=== PATIENT | male | born 1930 | race Caucasian/White ===

== ENCOUNTER 2018-01-17 15:59 | Emergency (ER) | payer MEDICARE ==
[2018-01-17 16:21] VITALS: BP 135/68
--- NOTE | 2018-01-17 16:39 | UC ---
Hip/Pelvis Pain - HPI Summary HPI Summary: PT SLIPPED AFTER COMING OUT OF THE SHOWER THIS MORNING. LANDED ON RIGHT SIDE AND NOW HAS RIGHT HIP PAIN. DENIES HEAD INJURY. NO LOC. AT BASELINE PT AMBULATES WITH 2 CANES DUE TO CHRONIC LEFT HIP PAIN AND LEFT FOOT DEFORMITY S/P INJURY A YOUNG ADULT. - History Of Current Complaint Chief Complaint: UCLowerExtremity Stated Complaint: FALL - HIP INJURY Time Seen by Provider: 01/17/18 16:21 Hx Obtained From: Patient, Family/Graphic Design Intern - SON AND D-I-L Onset/Duration: Sudden Onset, Lasting Hours, Still Present Timing: Constant Severity Initially: Moderate Severity Currently: Moderate Pain Intensity: 8 Pain Scale Used: 0-10 Numeric Location: Discrete At: - RIGHT HIP Character Of Pain: Sharp Aggravating Factor(s): Movement Alleviating Factor(s): Rest - Allergies/Home Medications Allergies/Adverse Reactions: Allergies Allergy/AdvReac Type Severity Reaction Status Date / Time No Known Allergies Allergy Verified 01/17/18 16:11 Home Medications: Home Medications Acetaminophen [Tylenol Extra Strength] 500 mg PO ONCE 01/17/18 [History Confirmed 01/17/18] PMH/Surg Hx/FS Hx/Imm Hx - Additional Past Medical History Additional PMH: ARTHRITIS Cardiovascular History: Cardiac Disease - AORTIC STENOSIS - Surgical History Surgical History: Yes Surgery Procedure, Year, and Place: tonsils - Family History Known Family History: Negative: Hypertension - Social History Alcohol Use: None Substance Use Type: None Smoking Status (MU): Never Smoked Tobacco Review of Systems Constitutional: Negative Skin: Negative Respiratory: Negative Cardiovascular: Negative Gastrointestinal: Negative All Other Systems Reviewed And Are Negative: Yes Physical Exam Triage Information Reviewed: Yes Appearance: Well-Appearing, No Pain Distress, Well-Nourished Vital Signs: Initial Vital Signs Temp 99.8 F 01/17/18 16:12 Pulse 73 01/17/18 16:12 Resp 20 01/17/18 16:12 BP 135/68 01/17/18 16:12 Pulse Ox 96 01/17/18 16:12 Vital Signs Reviewed: Yes Eyes: Positive: Conjunctiva Clear ENT: Positive: Hearing grossly normal Neck: Positive: Supple Respiratory: Positive: No respiratory distress, No accessory muscle use Cardiovascular: Positive: Pulses Normal Abdomen Description: Positive: Soft Musculoskeletal: Positive: No Edema, ROM Limited @ - RIGHT HIP, Other: - TTP RIGHT HIP POSTERIORLY Neurological: Positive: Alert Psychological: Positive: Normal Response To Family, Age Appropriate Behavior Skin: Negative: rashes, breakdown Diagnostics - Radiology RIGHT HIP XRAY Xray Interpretation: No Acute Changes Radiology Interpretation Completed By: Radiologist Hip Injury Course/Dx - Course Course Of Treatment: RIGHT HIP XRAY UNREMARKABLE TODAY. PER RADIOLOGY REPORT - IF CLINICAL CONCERN IS HIGH MRI OR CT RECOMMENDED. NEITHER OF THESE MODALITIES IS AVAILABLE HERE. PT AND FAMILY DECLINE TRANSFER TO ED. - Differential Dx/Diagnosis Provider Diagnoses: RIGHT HIP CONTUSION Discharge - Sign-Out/Discharge Documenting (check all that apply): Discharge - Discharge Plan Condition: Stable Disposition: HOME Patient Education Materials: Hip Contusion (ED) Referrals: Lexa Rico MD [Medical Doctor] - 2 Days Courtney Santiago MD [Primary Care Provider] - If Needed Additional Instructions: X-ray today unremarkable for fracture or dislocation. Per radiology recommendations - if clinical concern for fracture is high would recommend MRI or CT scan. Neither of these are available here today. You have declined transfer to the ED for further evaluation which at this point. Call your PCP or orthopedist on Friday morning for follow-up evaluation. Go to the ED without fail if you develop worsening pain, swelling and shortness of breath or any other concerning symptoms. Also if your urine turns brown or red. Okay to use your meloxicam twice daily as prescribed for discomfort. Tylenol for breakthrough. Physical therapy referral given today. BE SURE TO GO THROUGH SLOW RANGE OF MOTION AND STRETCHING EXERCISES DAILY YOU ARE ABLE TO PREVENT STIFFENING UP AND MAKING THE DISCOMFORT WORSE. YOU HAVE DECLINED TRANSFER TO THE ED TODAY WITH THE UNDERSTANDING THAT YOUR CONDITION MAY WORSEN LEADING TO POOR OUTCOME, /DISABILITY. - Billing Disposition and Condition Condition: STABLE Disposition: HOME
--- NOTE | 2018-01-17 16:58 | RAD ---
HISTORY: Fall, right hip pain COMPARISONS: None VIEWS: 4, Frontal view of the pelvis with frontal and frog-leg views of the right hip FINDINGS: BONE DENSITY: There is diffuse osteopenia. BONES: There is no displaced fracture. 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 ALIGNMENT: There is no dislocation. SOFT TISSUES: Unremarkable. OTHER FINDINGS: Degenerative changes are noted of the lower lumbar spine. IMPRESSION: NO RADIOGRAPHIC EVIDENCE FOR HIP FRACTURE. X-RAYS MAY BE NEGATIVE WITH NONDISPLACED HIP FRACTURE, IF THERE IS PERSISTENT CLINICAL CONCERN, RECOMMEND CONSIDERATION OF MRI. IN THE SETTING OF CONTRAINDICATION TO MRI OR LIMITATION IN EMERGENT ACCESS TO MRI, CT WOULD BE SUGGESTED.
== END 2018-01-17 18:30 | disposition home or self-care (01) ==
LOC: UCEAST 15:59
DX: S70.01XA Contusion of right hip, initial encounter (principal); W18.2XXA Fall in (into) shower or empty bathtub, initial encounter; Y93.E1 Activity, personal bathing and showering; Y92.9 Unspecified place or not applicable
CPT/HCPCS: 99211; G0463

== ENCOUNTER 2018-05-16 19:15 | Emergency (ER) | payer MEDICARE, BC ==
--- NOTE | 2018-05-16 21:15 | UC ---
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 Onset/Duration: Sudden Onset, Lasting Hours Onset Of Pain: Immediate Pain Intensity: 5 Pain Scale Used: 0-10 Numeric Mechanism Of Injury: Blunt Trauma, Fall From A Standing Position Aggravating Factor(s): Deep Breaths Alleviating Factor(s): Nothing - Allergies/Home Medications Allergies/Adverse Reactions: Allergies Allergy/AdvReac Type Severity Reaction Status Date / Time No Known Allergies Allergy Verified 05/16/18 19:48 Home Medications: Home Medications Meloxicam 7.5 mg PO BID PRN 05/16/18 [History Confirmed 05/16/18] PMH/Surg Hx/FS Hx/Imm Hx Previously Healthy: No - Surgical History Surgical History: Yes Surgery Procedure, Year, and Place: tonsils - Family History Known Family History: Negative: Hypertension - Social History Occupation: Retired Lives: Alone Alcohol Use: None Substance Use Type: None Smoking Status (MU): Never Smoked Tobacco Review of Systems Constitutional: Negative Skin: Negative Eyes: Negative ENT: Negative Respiratory: Negative Cardiovascular: Negative Gastrointestinal: Negative Genitourinary: Negative Motor: Negative Neurovascular: Negative Musculoskeletal: Arthralgia - right posterior rib pain Neurological: Negative Psychological: Negative Is Patient Immunocompromised?: No All Other Systems Reviewed And Are Negative: Yes Physical Exam Triage Information Reviewed: Yes Appearance: Well-Appearing, No Pain Distress, Well-Nourished Vital Signs: Initial Vital Signs Temp 100.4 F 05/16/18 19:38 Pulse 101 05/16/18 19:38 Resp 18 05/16/18 19:38 BP 115/71 05/16/18 19:38 Pulse Ox 97 05/16/18 19:38 Vital Signs Reviewed: Yes Eye Exam: Normal Eyes: Positive: Conjunctiva Clear ENT Exam: Normal ENT: Positive: Normal ENT inspection, Hearing grossly normal, Pharynx normal, Uvula midline. Negative: Nasal congestion, Trismus, Muffled voice, Hoarse voice , Dental tenderness, Sinus tenderness Dental Exam: Normal Neck exam: Normal Neck: Positive: Supple, Nontender, No Lymphadenopathy Respiratory Exam: Normal Respiratory: Positive: Chest non-tender, Lungs clear, Normal breath sounds, No respiratory distress, No accessory muscle use Cardiovascular Exam: Normal Cardiovascular: Positive: RRR, No Murmur, Pulses Normal, Brisk Capillary Refill Abdominal Exam: Normal Abdomen Description: Positive: Nontender, No Organomegaly, Soft. Negative: CVA Tenderness (R), CVA Tenderness (L) Bowel Sounds: Positive: Present Musculoskeletal Exam: Normal Musculoskeletal: Positive: Strength Intact, ROM Intact, No Edema Neurological Exam: Normal Neurological: Positive: Alert, Muscle Tone Normal Psychological Exam: Normal Skin Exam: Other Skin: Positive: Other - 2.5 cm skin discoloration with irregular boarders and color variation posterior left calf Diagnostics - Radiology No standard instances Radiology Interpretation Completed By: ED Physician - no obvious displaced rib fx Minor Trauma Course/Dx - Course Course Of Treatment: pain control, incentive spirometer, splinter, heat/cold for pain mamagement - Differential Dx/Diagnosis Provider Diagnoses: right posterior rib injury, atypical mole back of left leg Discharge - Sign-Out/Discharge Documenting (check all that apply): Patient Departure - Discharge Plan Condition: Stable Disposition: HOME Patient Education Materials: Acetaminophen (By mouth), How to Use an Incentive Spirometer (ED), Rib Fracture (ED), Atypical Mole (ED) Referrals: Zia Castro MD [Medical Doctor] - (call office Friday for an appointment--) Courtney Santiago MD [Primary Care Provider] - 3 Days - Billing Disposition and Condition Condition: STABLE Disposition: Home
[2018-05-16 21:34] VITALS: BP 117/58
[2018-05-16] MEDS ORDERED: Acetaminophen TAB* 325 MG PO ONE (21:41)
--- NOTE | 2018-05-17 11:21 | RAD ---
Indication: RIGHT rib pain post fall. Comparison: December 02, 2015 Technique: Dual energy PA chest and 4 view RIGHT unilateral rib series. Report: Nondisplaced fracture at the RIGHT sixth rib laterally corresponding with the skin marker indicating the site of clinical concern. Overlying soft tissue swelling. Small RIGHT pleural effusion and basilar atelectasis. Negative for pneumothorax. Clear LEFT lung and pleural space. Negative for cardiomegaly. Unremarkable central pulmonary vasculature. Moderately tortuous descending thoracic aorta. IMPRESSION: #. Nondisplaced RIGHT sixth rib fracture laterally with overlying soft tissue swelling. #. Small dependent RIGHT pleural effusion and proportional atelectasis. #. Negative for pneumothorax. R2
== END 2018-05-16 21:58 | disposition home or self-care (01) ==
LOC: UCEAST 19:15
DX: S29.9XXA Unspecified injury of thorax, initial encounter (principal); S22.31XA Fracture of one rib, right side, initial encounter for closed fracture; W18.30XA Fall on same level, unspecified, initial encounter; Y93.9 Activity, unspecified; Y92.9 Unspecified place or not applicable; D36.7 Benign neoplasm of other specified sites; J90 Pleural effusion, not elsewhere classified
CPT/HCPCS: 81003; 99212; A9270-GY; G0463

== ENCOUNTER 2018-12-02 17:55 | Inpatient (IN) | payer MEDICARE, BC ==
--- NOTE | 2018-12-02 18:18 | ED ---
Back Pain - HPI Summary HPI Summary: 88 yo male presents to [facility] ED via ambulance. He is a resident at [facility] and lives independently. He is accompanied today by his son and daughter in law. Pt tells me that he was lying on the couch earlier this evening, when he accidentally rolled off onto the carpeted floor. He is unsure if he hit his head , but does not believe he experienced LOC. He was unable to get to his feet and thus remained on the floor calling for help for 2-3 hours - per pt. Eventually staff at [facility] found pt and an ambulance was called. Currently he endorses pain in his b/l hips and mid back. He is unable to ambulate. Prior to today's injury he was ambulating with the assistance of two canes. The pain in his hips radiates down both of his legs. He denies numbness, tingling, saddle anesthesia , or loss of bowel/bladder control. PMHx of aortic stenosis - currently not being treated. He also had a left ankle fracture in high school that healed improperly and left him with a deformity. - History of Current Complaint Chief Complaint: EDBackInjuryPain Stated Complaint: FALL Time Seen by Provider: 12/02/18 18:18 Hx Obtained From: Patient, Family/Distribution Transformer Assembler Onset/Duration: Sudden Onset Timing: Constant Severity Initially: Moderate Severity Currently: Moderate Pain Intensity: 8 Pain Scale Used: 0-10 Numeric - Allergies/Home Medications Allergies/Adverse Reactions: Allergies Allergy/AdvReac Type Severity Reaction Status Date / Time No Known Allergies Allergy Verified 12/02/18 18:04 Home Medications: Home Medications Latanoprost 0.005% Eye Drop 1 drop BOTH EYES BEDTIME 12/02/18 [History Confirmed 12/02/18] Timoptic 0.5% Opth* 1 drop BOTH EYES BID 12/02/18 [History Confirmed 12/02/18] PMH/Surg Hx/FS Hx/Imm Hx Endocrine/Hematology History: Denies: Hx Anticoagulant Therapy, Hx Diabetes Cardiovascular History: Denies: Hx Atrial Fibrillation, Hx Myocardial Infarction, Hx Pacemaker/ICD Respiratory History: Denies: Hx Asthma, Hx Chronic Obstructive Pulmonary Disease (COPD) History: Denies: Hx Chronic Renal Failure Neurological History: Denies: Hx CVA, Hx Seizures, Hx Spinal Cord Injury - Surgical History Surgery Procedure, Year, and Place: tonsils Hx Anesthesia Reactions: No Infectious Disease History: No Infectious Disease History: Denies: Traveled Outside the [place] in Last 30 Days - Family History Known Family History: Negative: Hypertension - Social History Occupation: Retired Lives: Assisted Living Alcohol Use: None Substance Use Type: Reports: None Smoking Status (MU): Never Smoked Tobacco Review of Systems Constitutional: Negative Eyes: Negative ENT: Negative Cardiovascular: Negative Respiratory: Negative Gastrointestinal: Negative Genitourinary: Negative Positive: Other - Mid back pain. B/L hip pain Skin: Negative Neurological: Negative Psychological: Normal All Other Systems Reviewed And Are Negative: Yes Physical Exam - Summary Physical Exam Summary: GENERAL: NAD. Lying comfortably on stretcher. SKIN: No rashes, sores, ulcers, masses, lesions. HEENT: Head: AT/NC. No raccoon eyes or battles sign. NECK: Supple. Nontender. FROM CHEST: Rales on RLL. No accessory muscle use. Breathing comfortably and in no distress. CV: RRR. Pulses intact. Brisk cap refill. ABDOMEN: Soft. NTTP. No distention or guarding. No CVA tenderness. Bowel sounds present MSK: Decreased strength on left LE - son says this is baseline due to ankle deformity. Left ankle with external rotation deformity. B/L UEs FROM with symmetric strength. B/L Hips with TTP without specific point tenderness. Vertebral tenderness ~T10-T12. NEURO: A&Ox3. 3 word recall, remote, recent memory, ability to follow 2-step directions, and attention intact. CN: II: Peripheral de la rosa intact. Vision normal. III, IV, : EOMI. No nystagmus. PERRLA. V: Sensations intact and symmetric. Opens mouth and clenches teeth. VII: No facial asymmetry. Forehead wrinkles. Grins, shuts eyes, frowns, puffs cheeks. VIII: Hearing intact to finger rub. IX, X: Swallows and coughs. Uvula midline. XI: Shrugs shoulders. Turns head against resistance. XII: No tongue deviation [id number] are intact. Normal speech. No facial drooping. PSYCH: Age appropriate behavior. GCS 15 Triage Information Reviewed: Yes Vital Signs On Initial Exam: Initial Vitals Temp Pulse Resp BP Pulse Ox 98.3 F 69 18 138/93 95 12/02/18 18:02 12/02/18 18:02 12/02/18 18:02 12/02/18 18:02 12/02/18 18:02 Vital Signs Reviewed: Yes Diagnostics - Vital Signs Vital Signs Temp Pulse Resp BP Pulse Ox 12/02/18 18:02 98.3 F 69 18 138/93 95 - Laboratory Lab Results: Laboratory Tests 12/02/18 12/02/18 12/02/18 20:55 20:55 20:55 WBC 7.6 RBC 3.88 L Hgb 12.7 L Hct 38 L MCV 98 H MCH 33 H MCHC 33 RDW 13 Plt Count 121 L MPV 7.4 Neut % (Auto) 85.5 Lymph % (Auto) 6.8 [place] % (Auto) 7.1 Eos % (Auto) 0.3 Baso % (Auto) 0.3 Absolute Neuts (auto) 6.5 Absolute Lymphs (auto) 0.5 L Absolute Monos (auto) 0.5 Absolute Eos (auto) 0 Absolute Basos (auto) 0 Absolute Nucleated RBC 0 Nucleated RBC % 0 Sodium Potassium Chloride Carbon Dioxide Anion Gap BUN Creatinine Est GFR ( Amer) Est GFR (Non-Af Amer) BUN/Creatinine Ratio Glucose Lactic Acid 2.0 Calcium Total Bilirubin AST ALT Alkaline Phosphatase Total Protein Albumin Globulin Albumin/Globulin Ratio Urine Color Yellow Urine Appearance Cloudy Urine pH 5.0 Ur Specific [place] 1.025 Urine Protein Negative Urine Ketones Negative Urine Blood Negative Urine Nitrate Negative Urine Bilirubin Negative Urine Urobilinogen Negative Ur Leukocyte Esterase Negative Urine Glucose Negative 12/02/18 20:55 WBC RBC Hgb Hct MCV MCH MCHC RDW Plt Count MPV Neut % (Auto) Lymph % (Auto) [place] % (Auto) Eos % (Auto) Baso % (Auto) Absolute Neuts (auto) Absolute Lymphs (auto) Absolute Monos (auto) Absolute Eos (auto) Absolute Basos (auto) Absolute Nucleated RBC Nucleated RBC % Sodium 139 Potassium 3.8 Chloride 105 Carbon Dioxide 31 Anion Gap 3 BUN 19 Creatinine 0.64 L Est GFR ( Amer) 143.5 Est GFR (Non-Af Amer) 118.6 BUN/Creatinine Ratio 29.7 H Glucose 170 H Lactic Acid Calcium 8.6 Total Bilirubin 0.70 AST 30 ALT 17 Alkaline Phosphatase 47 Total Protein 6.1 L Albumin 3.6 Globulin 2.5 Albumin/Globulin Ratio 1.4 Urine Color Urine Appearance Urine pH Ur Specific [place] Urine Protein Urine Ketones Urine Blood Urine Nitrate Urine Bilirubin Urine Urobilinogen Ur Leukocyte Esterase Urine Glucose Result Diagrams: 12/02/18 20:55 12/02/18 20:55 Lab Statement: Any lab studies that have been ordered have been reviewed, and results considered in the medical decision making process. Re-Evaluation - Re-Evaluation First Eval Re-Evaluation Time: 20:36 Change: Unchanged Comment: Reviewed results of CT brain, t spine, and pelvis with pt and family. Questions answered. Lying comfortably in stretcher. Back Pain Course/Dx - Course Course Of Treatment: CT brain: IMPRESSION: No acute intracranial pathology. CT c spine: IMPRESSION: 1. No acute cervical spine fracture. 2. Partially visualized right pleural effusion. CT pelvis: FINDINGS: Stomach and bowel: Diverticulosis of the distal colon. Vasculature: Heavy atherosclerotic calcifications of the aorta and major. branches. Ectasia of the infrarenal abdominal aorta just above the bifurcation,. measuring up to 2.8 cm in maximal AP diameter. Bones/joints: Generalized osteopenia. No acute fracture identified. Soft tissues: Unremarkable. IMPRESSION: 1. No acute fracture or dislocation. 2. Other chronic findings, as above. CT t spine: FINDINGS: Vertebrae: Severe age-indeterminate compression deformity of the anterior. aspect of the T12 vertebral body with retropulsion causing approximately 20%. osseous canal narrowing. Remaining thoracic vertebral body heights are intact. Multilevel facet arthropathy. Spinous processes are intact. Discs/Spinal canal/ Neural foramina: Multilevel degenerative changes with. intervertebral disc height loss and osteophyte formation. No significant canal. narrowing. Soft tissues: Unremarkable. Pleural space: Partially visualized moderate right pleural effusion. Kidneys and ureters: Nonobstructive calyceal calculi in the left kidney. IMPRESSION: 1. Severe age-indeterminate compression deformity of the anterior aspect of the. T12 vertebral body with retropulsion causing approximately 20% osseous canal. narrowing. This can be better assessed with MRI thoracic spine. 2. Partially visualized moderate right pleural effusion. 3. Other chronic findings, as above. EKG: NSR without ST changes as read by Dr. Gates. XR: Lumbar spine : No acute process on wet read. Pt is unable to ambulate due to pain and instability. Family tells me that he was previously ambulatory with the use of two canes. Spoke with Dr. Burns as above. Unable to obtain MRI at this time as the machine is apparently not working, but I am told it will be available within the next few hours. Given pt's T12 fracture and inability to care for himself - I discussed hospital admission with pt and his family. They were agreeable to this. [address] Harvey who accepts pt for admission. - Diagnoses Provider Diagnoses: T12 compression fracture, Unable to ambulate, Pleural effusion, right, Fall - Provider Notifications Discussed Care Of Patient With: Enrique Burns Time Discussed With Above Provider: 20:30 Instructed by Provider To: Other - Discussed case and CT results with Dr. Burns. He recommends spine precautions, CT c spine, XR of lumbar spine, and MRI of t spine to further evaluate. If admitted he will see pt in the morning. Discharge - Sign-Out/Discharge Documenting (check all that apply): Patient Departure Patient Received Moderate/Deep Sedation with Procedure: No - Discharge Plan Condition: Stable Disposition: ADMITTED TO [facility] - Billing Disposition and Condition Condition: STABLE Disposition: Admitted to [facility]
--- OUTSIDE RECORDS SUMMARY | 2018-12-02 18:30 | XMS REPORT | Continuity of Care Document ---
:1930 External Reference #:[id number] Author Name Srinivasan Posadas, OD Address [address] [place] [address] Care Team Providers Name Role Phone Courtney Santiago MD Care Team Information Framing Machine Tender Unavailable Courtney Santiago MD Primary Care Physician Unavailable Payers Type Date Identification Numbers Payment Provider Subscriber Policy Number: [id number] Medicare [place] Pieter Gordon JR PayID: [id number] [address] [place] [address] Policy Number: [id number] [place] [employer] Pieetr Gordon JR PayID: [id number] [address] [place] [address] Advance Directives Description No Information Available Problems Description No Information Family History Date Family Member(s) Problem(s) Comments Father Cognative Decline after pace maker Father due to Unknown Causes () Mother due to Natural Causes () Social History Type Date Description Comments Sex Unknown ETOH Use Never used alcohol Tobacco Use Start: Unknown Patient has never smoked Smoking Status Reviewed: 11/10/18 Patient has never smoked Allergies, Adverse Reactions, Alerts Description No Known Drug Allergies Medications Medication Date Status Form Strength Qnty SIG Indications Ordering Provider Timolol 10/05/ Active GFS 0.5% 15ml one drop Srinivasan Gee 2018 every day Cuauhtemoc, OD Ophthalmic both eyes, Gel Forming take 15 minutes after latanoprost Latanoprost 09/14/ Active Solution 0.005% 22.5ml 1 drops both H40.1413 Peter 2018 eyes every Bradley, night M.D. No Active 09/14/ Hx Unknown Medications 2017 - 2017 Immunizations Description No Information Available Vital Signs Date Vital Result Comment 11/10/2018 2:38pm Intraocular Pressure Right Eye 16 mmHg Intraocular Pressure Left Eye 16 mmHg 10/05/2018 3:14pm Intraocular Pressure Right Eye 20 mmHg Intraocular Pressure Left Eye 19 mmHg 09/14/2018 1:33pm Intraocular Pressure Right Eye 30 mmHg Intraocular Pressure Left Eye 30 mmHg Cornea Thickness Left Eye 560 m Cornea Thickness Right Eye 521 m Pachymetry adjusted IOP Right Eye -1 Pachymetry adjusted IOP Left Eye +1 Results Description No Information Available Procedures Date Code Description Status 10/05/2018 81334 Eye Exam Est Intermediate Completed 09/14/2018 50334 Fundus Photography W/Interpretation & Report Completed 09/14/2018 96206 Ophthalmoscopy Initial Completed 09/14/2018 38083 Gonioscopy Completed 09/14/2018 38365 Eye Exam New Comprehensive Completed 09/14/2018 67480 Corneal Pachymetry, Unilateral/Bilateral Completed Encounters Description No Information Available Plan of Treatment 11/10/2018 - Srinivasan Posadas, [id number] Primary open-angle glaucoma, left eye, severe [id number] Capsular glaucoma with pseudoexfoliation of lens, right eye ,H25.13 Age-related nuclear cataract, bilateralFollow up:A-scans OU with dr bradley 3 mos IOP
[2018-12-02] MEDS ORDERED: Acetaminophen TAB* 325 MG PO ONE (20:47)
[2018-12-02 21:13] LABS: ABS Basophils 0 10^3/ul (0-0.2); ABS Eosinophils 0 10^3/ul (0-0.6); ABS Lymphocytes 0.5 10^3/ul (1.0-4.8); ABS Monocytes 0.5 10^3/ul (0-0.8); ABS Neutrophils 6.5 10^3/ul (1.5-7.7); ABS Nucleated RBC 0 10^3/ul; Eosinophil % 0.3 %; Hematocrit 38 % (42-52); Hemoglobin 12.7 g/dl (14.0-18.0); Lymphocyte % 6.8 %; Mean Corpuscular HGB Conc 33 g/dl (31-36); Mean Corpuscular Hemoglobin 33 pg (27-31); Mean Corpuscular Volume 98 fL (80-94); Mean Platelet Volume 7.4 fL (7.4-10.4); Nucleated Red Blood Cells % 0; Platelet Count 121 10^3/ul (150-450); Red Blood Count 3.88 10^6/ul (4.00-5.40); Red Cell Distribution Width 13 % (10.5-15); White Blood Count 7.6 10^3/ul (3.5-10.8)
[2018-12-02 21:16] LABS: Urine Appearance Cloudy; Urine Bilirubin Negative (Negative); Urine Blood Negative (Negative); Urine Color Yellow; Urine Glucose Negative (Negative); Urine Ketones Negative (Negative); Urine Nitrite Negative (Negative); Urine Protein Negative (Negative); Urine Specific Gravity 1.025 (1.010-1.030); Urine Urobilinogen Negative (Negative)
[2018-12-02 21:31] LABS: Albumin 3.6 g/dL (3.2-5.2); Albumin/Globulin Ratio 1.4 (1-3); BUN/Creatinine Ratio 29.7 (8-20); Calcium 8.6 mg/dL (8.6-10.3); EGFR African American 143.5 (>60); EGFR Non-African American 118.6 (>60); Globulin 2.5 g/dL (2-4); Potassium 3.8 mmol/L (3.5-5.0); Total Bilirubin 0.7 mg/dL (0.2-1.0); Total Protein 6.1 g/dL (6.4-8.9)
[2018-12-02] MEDS ORDERED: Acetaminophen TAB* 325 MG PO PRN (22:32)
[2018-12-02] MEDS ORDERED: Ondansetron INJ* 2 MG/ML VIAL IV PRN (22:33)
--- NOTE | 2018-12-03 01:04 | HP ---
CC: Dr. Courtney Santiago; Dr. Burns HISTORY AND PHYSICAL: DATE OF ADMISSION: 12/02/18 PRIMARY CARE PROVIDER: Dr. Courtney Santiago. CHIEF COMPLAINT: Status post fall and hip pain. HISTORY OF PRESENT ILLNESS: This is an 88-year-old male with past medical history of aortic stenosis, glaucoma, who at 3 o'clock this afternoon, sustained a fall. He states that he was sitting in a chair when he all of a sudden just slipped out of the chair. The fall was not associated with any head trauma, no loss of consciousness. There was no chest pain, no shortness of breath, no lightheadedness. However, since the fall, he has been having bilateral hip pain as well as lower back pain. There is no associated numbness or weakness of the lower extremities, there is no rectal or urinary incontinence. In the emergency room, the patient had workup done, which showed compression fracture of the T12. Subsequently, the neurosurgeon, Dr. Burns was contacted. He recommended admission to the hospital with ordering of an MRI. Subsequently, the hospitalist service was called. PAST MEDICAL HISTORY: 1. Glaucoma. 2. Aortic stenosis. PAST SURGICAL HISTORY: Knee arthroscopy. MEDICATIONS: Include: 1. Timoptic 0.5% ophthalmic solution 1 drop both eyes twice daily. 2. Latanoprost eye drop, 1 drop both eyes at bedtime. ALLERGIES: No known drug allergies. FAMILY HISTORY: Father had dementia as well as pacemaker placement. SOCIAL HISTORY: He lives at [facility], with no smoking, no alcohol use. The patient a is do not resuscitate. Healthcare proxy is Qasim, son, phone number [phone], additional phone number [phone]. REVIEW OF SYSTEMS: He does not have any fevers, no chills, no sore throat, no chest pain, no shortness of breath, no palpitations, no nausea, no vomiting, no abdominal pain. He is having back pain as well as hip pain. No knee pain. No urinary or rectal incontinence. No nausea, no vomiting, no diarrhea. No headaches, no weakness, no numbness. PHYSICAL EXAMINATION BP: 11/5/53, HR: 69, RR: 16, O2: 97% Room Air. GENERAL: Elderly male, lying in an ER stretcher, in no acute distress. HEENT: Pupils are equal, round, reactive to light. Atraumatic, normocephalic. There is no oropharyngeal erythema. LUNGS: There is no tachypnea, no use of accessory muscles. Lungs are clear to auscultation bilaterally with no wheezing, rales, or rhonchi. HEART: There is no chest wall tenderness, regular rate and rhythm, 3/6 systolic murmur best heard at the right upper sternal border. ABDOMEN: Bowel sounds are normoactive in all 4 quadrants. Abdomen is soft, nontender, nondistended. BACK: There is bilateral hip tenderness as well as lower back tenderness. EXTREMITIES: There is dorsalis pedis, is 2+ bilaterally. He is able to wiggle toes bilaterally. Sensation to the feet as well as legs is intact. NEUROLOGICAL: Alert and oriented x2, person and place. There are no focal neurological deficits. DIAGNOSTIC STUDIES/LAB DATA: Hemoglobin of 12.7, hematocrit of 38, WBC of 7.6 , platelets of 121. Sodium 139, potassium 3.8, chloride 105, bicarb 31, BUN 19 , creatinine was 0.64, glucose of 170. Brain CT did not show any acute pathology. Pelvic CT showed no acute fracture or dislocation, chronic findings were shown. Thoracic CT shows T12 vertebral body, age-indeterminate compression deformity at the anterior aspect causing 20% canal narrowing. Partially visualized moderate right pleural effusion. IMPRESSION AND PLAN: 1. This is a T12 compression fracture: At this point, the patient does not have any neurological deficits. MRI has been ordered, neurological consultation with Dr. Burns has been requested. Pain control 2. Aortic stenosis. At this point, he does not have any acute symptomatic aortic stenosis. Ccontinue to monitor. 3. Pleural effusion; however, it is not causing him any shortness of breath, does not require oxygen. 4. Glaucoma: Continue home medications. 5. DVT prophylaxis: Due to the acute fracture, I will place him on sequential compression device. [id number]/[facility] #: [id number] COURTNEY
[2018-12-03] MEDS: oxyCODONE/Acetamin 5/325 MG* TAB PO PRN ×2 (02:18→09:04)
[2018-12-03] MEDS: Timolol 0.5% OPTH.SOL* BTL BOTH EYES SCH ×2 (09:05→21:45)
--- NOTE | 2018-12-03 16:35 | PN ---
Subjective Date of Service: 12/03/18 Interval History: Resting in bed on assessment. Family at bedside. Reports pain is controlled if he does not move. Family reports patient gets sleeping with percocet. Denies numbness/tingling, weakness, urinary symptoms, chest pain/pressure, nausea, vomiting. Objective Active Medications: Acetaminophen (Tylenol Tab*) 650 mg PO Q6H [facility] Latanoprost (Xalatan 0.005%*) 1 drop BOTH EYES BEDTIME [facility] Ondansetron HCl (Zofran Inj*) 4 mg IV Q6H PRN PRN Reason: NAUSEA Oxycodone/Acetaminophen (Percocet 5/325 Tab*) 1 tab PO Q6H PRN PRN Reason: PAIN - MODERATE TO SEVERE Last Admin: 12/03/18 09:04 Dose: 1 tab Timolol Maleate (Timoptic 0.5% Opth*) 1 drop BOTH EYES BID YURIDIA Last Admin: 12/03/18 09:05 Dose: 1 drop Vital Signs - 8 hr 12/03/18 12/03/18 12/03/18 09:04 10:54 14:00 Temperature 98 F Pulse Rate 66 Respiratory 16 18 17 Rate Blood Pressure 118/48 (mmHg) O2 Sat by Pulse 97 Oximetry Oxygen Devices in Use Now: None Appearance: Comfortable, NAD Eyes: No Scleral Icterus Ears/Nose/Mouth/Throat: Clear Oropharnyx, Mucous Membranes Moist Neck: NL Appearance and Movements; NL JVP Respiratory: Symmetrical Chest Expansion and Respiratory Effort, Clear to Auscultation Cardiovascular: RRR, - - Systolic murmur noted. Abdominal: NL Sounds; No Tenderness; No Distention Lymphatic: No Cervical Adenopathy Extremities: No Edema Skin: No Rash or Ulcers Neurological: Alert and Oriented x 3, NL Sensation, NL Muscle Strength and Tone Nutrition: Taking PO's Result Diagrams: 12/02/18 20:55 12/02/18 20:55 Additional Lab and Data: Laboratory Results - last 24 hr 12/02/18 12/02/18 12/02/18 20:55 20:55 20:55 WBC 7.6 RBC 3.88 L Hgb 12.7 L Hct 38 L MCV 98 H MCH 33 H MCHC 33 RDW 13 Plt Count 121 L MPV 7.4 Neut % (Auto) 85.5 Lymph % (Auto) 6.8 [place] % (Auto) 7.1 Eos % (Auto) 0.3 Baso % (Auto) 0.3 Absolute Neuts (auto) 6.5 Absolute Lymphs (auto) 0.5 L Absolute Monos (auto) 0.5 Absolute Eos (auto) 0 Absolute Basos (auto) 0 Absolute Nucleated RBC 0 Nucleated RBC % 0 Sodium Potassium Chloride Carbon Dioxide Anion Gap BUN Creatinine Est GFR ( Amer) Est GFR (Non-Af Amer) BUN/Creatinine Ratio Glucose Lactic Acid 2.0 Calcium Total Bilirubin AST ALT Alkaline Phosphatase Total Protein Albumin Globulin Albumin/Globulin Ratio Urine Color Yellow Urine Appearance Cloudy Urine pH 5.0 Ur Specific [place] 1.025 Urine Protein Negative Urine Ketones Negative Urine Blood Negative Urine Nitrate Negative Urine Bilirubin Negative Urine Urobilinogen Negative Ur Leukocyte Esterase Negative Urine Glucose Negative 12/02/18 20:55 WBC RBC Hgb Hct MCV MCH MCHC RDW Plt Count MPV Neut % (Auto) Lymph % (Auto) [place] % (Auto) Eos % (Auto) Baso % (Auto) Absolute Neuts (auto) Absolute Lymphs (auto) Absolute Monos (auto) Absolute Eos (auto) Absolute Basos (auto) Absolute Nucleated RBC Nucleated RBC % Sodium 139 Potassium 3.8 Chloride 105 Carbon Dioxide 31 Anion Gap 3 BUN 19 Creatinine 0.64 L Est GFR ( Amer) 143.5 Est GFR (Non-Af Amer) 118.6 BUN/Creatinine Ratio 29.7 H Glucose 170 H Lactic Acid Calcium 8.6 Total Bilirubin 0.70 AST 30 ALT 17 Alkaline Phosphatase 47 Total Protein 6.1 L Albumin 3.6 Globulin 2.5 Albumin/Globulin Ratio 1.4 Urine Color Urine Appearance Urine pH Ur Specific [place] Urine Protein Urine Ketones Urine Blood Urine Nitrate Urine Bilirubin Urine Urobilinogen Ur Leukocyte Esterase Urine Glucose Assess/Plan/Problems-Billing Assessment: 88 yr old male with pmh of aortic stenosis and glaucomo who sustained injury after mechanical fall at home. - Patient Problems (1) Compression fx, thoracic spine Comment: - 75% compression of T12 with no bone marrow edema consistent with old fx - Neurosurg consulting. (2) Compression fx, lumbar spine Comment: - Lumbar Xray revealed severe compression fracture of L1 vetebral body and moderate compression fx of L4 (3) Aortic stenosis Comment: - Echo ordered. - Systolic murmur noted (4) Pain Comment: - Patient taking one percocet for pain PRN - Family has noted drowsiness with percocet - Tylenol changed from PRN to scheduled to avoid peaks of pain and therefore may need less percocet. (5) DVT prophylaxis Comment: - Heparin Subq Status and Disposition: Inpatient until medically stable. Subacute rehab at discharge? Attending: Aaron Quigley
[2018-12-03] MEDS: Acetaminophen TAB* 325 MG PO SCH ×2 (17:45→21:58)
--- NOTE | 2018-12-03 18:48 | CONSULT ---
Palliative / Hospice Consult Ordering Provider: Aaron Santiago-PCP - Subjective Code Status: DNR Advance Directives Location: In Chart MOLST Part A Completed: Yes - completed with son MOLST Part E Completed:: Yes - completed with son - History or Present Illness History or Present Illness: 88 yo male resident of [facility] living with moderate dementia who slid off his couch and hurt his back. He has aortic stenosis not sure of severity last ECHO was done at [place] in 08/12. At that time they didn't want to proceed with valve replacement because they were afraid of worsening his dementia and didn't want to fix heart so he could have prolonged due to dementia. His other medical problems include glaucoma and osteopenia. He has an old compression fx and new R pleural effusion. He is a retired computer systems software engineer, one son Qasim who is his HCP. Non smoker, no etoh and no drug use. He has had 2 ER evaluations 05/16/18 rib injury & 01/17/[address] brain neg, CT pelvis osteopenia, ectasia of abd aorta 2.8cm, CT cspine neg, Ekg showed LVH. Clarification is needed with other 3 studies(MRI thoracic, Ls spine & CT thorax) as to which vertebrae is affected not sure there is a new fracture. H/H 12.7/38, BUN/CR 19/.64 egfr 118.6, Ca 8.6, tprot 6.1, alb 3.6. At this point he is still on bedrest awaiting talking to neurosurgery. Lab Values: Abnormal Lab Results 12/02/18 12/02/18 12/02/18 20:55 20:55 20:55 WBC 7.6 RBC 3.88 L Hgb 12.7 L Hct 38 L MCV 98 H MCH 33 H MCHC 33 RDW 13 Plt Count 121 L MPV 7.4 Neut % (Auto) 85.5 Lymph % (Auto) 6.8 [place] % (Auto) 7.1 Eos % (Auto) 0.3 Baso % (Auto) 0.3 Absolute Neuts (auto) 6.5 Absolute Lymphs (auto) 0.5 L Absolute Monos (auto) 0.5 Absolute Eos (auto) 0 Absolute Basos (auto) 0 Absolute Nucleated RBC 0 Nucleated RBC % 0 Sodium Potassium Chloride Carbon Dioxide Anion Gap BUN Creatinine Est GFR ( Amer) Est GFR (Non-Af Amer) BUN/Creatinine Ratio Glucose Lactic Acid 2.0 Calcium Total Bilirubin AST ALT Alkaline Phosphatase Total Protein Albumin Globulin Albumin/Globulin Ratio Urine Color Yellow Urine Appearance Cloudy Urine pH 5.0 Ur Specific [place] 1.025 Urine Protein Negative Urine Ketones Negative Urine Blood Negative Urine Nitrate Negative Urine Bilirubin Negative Urine Urobilinogen Negative Ur Leukocyte Esterase Negative Urine Glucose Negative 12/02/18 20:55 WBC RBC Hgb Hct MCV MCH MCHC RDW Plt Count MPV Neut % (Auto) Lymph % (Auto) [place] % (Auto) Eos % (Auto) Baso % (Auto) Absolute Neuts (auto) Absolute Lymphs (auto) Absolute Monos (auto) Absolute Eos (auto) Absolute Basos (auto) Absolute Nucleated RBC Nucleated RBC % Sodium 139 Potassium 3.8 Chloride 105 Carbon Dioxide 31 Anion Gap 3 BUN 19 Creatinine 0.64 L Est GFR ( Amer) 143.5 Est GFR (Non-Af Amer) 118.6 BUN/Creatinine Ratio 29.7 H Glucose 170 H Lactic Acid Calcium 8.6 Total Bilirubin 0.70 AST 30 ALT 17 Alkaline Phosphatase 47 Total Protein 6.1 L Albumin 3.6 Globulin 2.5 Albumin/Globulin Ratio 1.4 Urine Color Urine Appearance Urine pH Ur Specific [place] Urine Protein Urine Ketones Urine Blood Urine Nitrate Urine Bilirubin Urine Urobilinogen Ur Leukocyte Esterase Urine Glucose Laboratory Last Values WBC 7.6 10^3/ul (3.5-10.8) 12/02/18 20:55 RBC 3.88 10^6/ul (4.00-5.40) L 12/02/18 20:55 Hgb 12.7 g/dl (14.0-18.0) L 12/02/18 20:55 Hct 38 % (42-52) L 12/02/18 20:55 MCV 98 fL (80-94) H 12/02/18 20:55 MCH 33 pg (27-31) H 12/02/18 20:55 MCHC 33 g/dl (31-36) 12/02/18 20:55 RDW 13 % (10.5-15) 12/02/18 20:55 Plt Count 121 10^3/ul (150-450) L 12/02/18 20:55 MPV 7.4 fL (7.4-10.4) 12/02/18 20:55 Neut % (Auto) 85.5 % 12/02/18 20:55 Lymph % (Auto) 6.8 % 12/02/18 20:55 [place] % (Auto) 7.1 % 12/02/18 20:55 Eos % (Auto) 0.3 % 12/02/18 20:55 Baso % (Auto) 0.3 % 12/02/18 20:55 Absolute Neuts (auto) 6.5 10^3/ul (1.5-7.7) 12/02/18 20:55 Absolute Lymphs (auto) 0.5 10^3/ul (1.0-4.8) L 12/02/18 20:55 Absolute Monos (auto) 0.5 10^3/ul (0-0.8) 12/02/18 20:55 Absolute Eos (auto) 0 10^3/ul (0-0.6) 12/02/18 20:55 Absolute Basos (auto) 0 10^3/ul (0-0.2) 12/02/18 20:55 Absolute Nucleated RBC 0 10^3/ul 12/02/18 20:55 Nucleated RBC % 0 12/02/18 20:55 Sodium 139 mmol/L (135-145) 12/02/18 20:55 Potassium 3.8 mmol/L (3.5-5.0) 12/02/18 20:55 Chloride 105 mmol/L (101-111) 12/02/18 20:55 Carbon Dioxide 31 mmol/L (22-32) 12/02/18 20:55 Anion Gap 3 mmol/L (2-11) 12/02/18 20:55 BUN 19 mg/dL (6-24) 12/02/18 20:55 Creatinine 0.64 mg/dL (0.67-1.17) L 12/02/18 20:55 Est GFR ( Amer) 143.5 (>60) 12/02/18 20:55 Est GFR (Non-Af Amer) 118.6 (>60) 12/02/18 20:55 BUN/Creatinine Ratio 29.7 (8-20) H 12/02/18 20:55 Glucose 170 mg/dL (70-100) H 12/02/18 20:55 Lactic Acid 2.0 mmol/L (0.5-2.0) 12/02/18 20:55 Calcium 8.6 mg/dL (8.6-10.3) 12/02/18 20:55 Total Bilirubin 0.70 mg/dL (0.2-1.0) 12/02/18 20:55 AST 30 U/L (13-39) 12/02/18 20:55 ALT 17 U/L (7-52) 12/02/18 20:55 Alkaline Phosphatase 47 U/L (34-104) 12/02/18 20:55 Total Protein 6.1 g/dL (6.4-8.9) L 12/02/18 20:55 Albumin 3.6 g/dL (3.2-5.2) 12/02/18 20:55 Globulin 2.5 g/dL (2-4) 12/02/18 20:55 Albumin/Globulin Ratio 1.4 (1-3) 12/02/18 20:55 Urine Color Yellow 12/02/18 20:55 Urine Appearance Cloudy 12/02/18 20:55 Urine pH 5.0 (5-9) 12/02/18 20:55 Ur Specific [place] 1.025 (1.010-1.030) 12/02/18 20:55 Urine Protein Negative (Negative) 12/02/18 20:55 Urine Ketones Negative (Negative) 12/02/18 20:55 Urine Blood Negative (Negative) 12/02/18 20:55 Urine Nitrate Negative (Negative) 12/02/18 20:55 Urine Bilirubin Negative (Negative) 12/02/18 20:55 Urine Urobilinogen Negative (Negative) 12/02/18 20:55 Ur Leukocyte Esterase Negative (Negative) 12/02/18 20:55 Urine Glucose Negative (Negative) 12/02/18 20:55 - Objective Active Medications: Acetaminophen (Tylenol Tab*) 650 mg PO Q6H YURIDIA Last Admin: 12/03/18 17:45 Dose: Not Given Heparin Sodium (Porcine) (Heparin Vial(*)) 5,000 units SUBCUT Q12HR YURIDIA Latanoprost (Xalatan 0.005%*) 1 drop BOTH EYES BEDTIME Y[facility]IDIA Ondansetron HCl (Zofran Inj*) 4 mg IV Q6H PRN PRN Reason: NAUSEA Oxycodone/Acetaminophen (Percocet 5/325 Tab*) 1 tab PO Q6H PRN PRN Reason: PAIN - MODERATE TO SEVERE Last Admin: 12/03/18 09:04 Dose: 1 tab Timolol Maleate (Timoptic 0.5% Opth*) 1 drop BOTH EYES BID YURIDIA Last Admin: 12/03/18 09:05 Dose: 1 drop Vital Signs: Vital Signs: Temp Pulse Resp BP Pulse Ox 98 F 66 17 118/48 97 12/03/18 14:00 12/03/18 14:00 12/03/18 14:00 12/03/18 14:00 12/03/18 14:00 Patient Weight: Weight 57.243 kg Intake and Output: Intake & Output 12/01/18 12/02/18 12/03/18 12/04/18 06:59 06:59 06:59 06:59 Intake Total 0 360 Output Total 200 200 Balance -200 160 Weight 57.243 kg 57.243 kg Intake: Oral 0 360 Output: Urine 200 200 Other: Estimated Void Small Date of Last Bowel 0 Movement # Bowel Movements 0 0 # Voids 1 ADLs: Meal Record Start: 12/02/18 22: 54 Freq: DAILY@0900,1400,1800 Status: Active Protocol: Created 12/02/18 22:54 System (Rec: 12/02/18 22:54 System [id number]) Document 12/03/18 09:00 [id number] (Rec: 12/03/18 09:58 [id number] MED-C11) Intake and Output Start: 12/02/18 18: 04 Freq: Status: Active Protocol: Created 12/02/18 18:04 System (Rec: 12/02/18 18:04 System [id number]) Intake and Output Start: 12/02/18 22: 54 Freq: DAILY@0600,1400,2200 Status: Active Protocol: Created 12/02/18 22:54 System (Rec: 12/02/18 22:54 System [id number]) Document 12/03/18 03:36 [id number] (Rec: 12/03/18 03:41 [id number] MED-C11) Document 12/03/18 06:07 [id number] (Rec: 12/03/18 06:07 [id number] MED-C13) Document 12/03/18 14:00 [id number] (Rec: 12/03/18 14:31 [id number] MED-C09) Eyes: No Scleral Icterus Ears/Nose/Mouth/Throat: Clear Oropharnyx, Mucous Membranes Moist Neck: NL Appearance and Movements; NL JVP Cardiovascular: RRR - 2/4 systolic mumur, - - Systolic murmur noted. Respiratory: Clear to Auscultation Abdominal: NL Sounds; No Tenderness; No Distention Extremities: No Edema Neurological: Alert and Oriented x 3, NL Sensation, NL Muscle Strength and Tone - Assessment Assessment: 88 yo male resident of [facility] with mod dementia & aortic stenosis presents to ER with slipping from the couch and back pain - Plan Consult Plan (MU): Palliative Plan: Long discussion with son, pt(dad) not able to participate. All information obtained from the son Qasim and medical records. We discussed the MOLST form and it was signed DNR/DNI. When dad progresses he would like him to be on hospice. At this time I don't think he is hospice eligible dementia is not severe enough and waiting for an ECHO to be be done. Son notes dad is not symptomatic with CP or SOB. He just moved to [facility] independent living and does have home health aides visiting several hours per day. Dad doesn't like having the aides and is still getting adjusted to [facility]. He had been living in his own home an old farmhouse but it had too many steps and was cold. He is worried about getting his dad up and about so he can go back to [facility]. Recommended sending him home with [facility]. - Time On Unit Date of Evaluation: 12/03/18 Hospice Consult Time in: 05:00 Hospice Consult Time Out: 06:30 Hospice Consult Time Total: 90 > 50% of Time Spend In Counseling or Coordinating Care: Yes
[2018-12-03] MEDS: Latanoprost 0.005%* 2.5 ml BTL BOTH EYES SCH (21:45)
[2018-12-03] MEDS: Heparin VIAL(*) 5000 UNITS/ML VIAL (FIVE THOUSAND) SUBCUT SCH (21:45)
[2018-12-04] MEDS: oxyCODONE/Acetamin 5/325 MG* TAB PO PRN ×2 (03:12→10:19)
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
[2018-12-04] MEDS: Acetaminophen TAB* 325 MG PO SCH ×4 (04:56→21:14)
--- NOTE | 2018-12-04 08:56 | PN ---
Progress Note - Progress Note Date of Service: 12/04/18 SOAP: Subjective: []No events ON. Episode of confusion this am. Patient got out of bed on his own. No complains of back pain. Tolerates po well Objective: []VSS AAOx1-2, face symmetric Motor: Arvin 4-5/5, Lt ankle deformity Sensory grossly intact to light touch. Assessment: []88 yo m fall, T12 chronic fracture, L4 compression deformity Plan: []Monitor VS, Neurochecks Spoke with patient's son, daughter in law yesterday night. Son is concerned about mobilization of patient, DC planning. Consider CT/MRI of lumbar spine early today. L4 fracture possibly chronic too. Appreciate IM care. Roya Burns MD
[2018-12-04 09:57] LABS: ABS Basophils 0 10^3/ul (0-0.2); ABS Eosinophils 0.1 10^3/ul (0-0.6); ABS Lymphocytes 0.6 10^3/ul (1.0-4.8); ABS Monocytes 0.5 10^3/ul (0-0.8); ABS Neutrophils 3.7 10^3/ul (1.5-7.7); ABS Nucleated RBC 0 10^3/ul; Eosinophil % 2.2 %; Hematocrit 37 % (42-52); Hemoglobin 12.4 g/dl (14.0-18.0); Lymphocyte % 12.3 %; Mean Corpuscular HGB Conc 34 g/dl (31-36); Mean Corpuscular Hemoglobin 33 pg (27-31); Mean Corpuscular Volume 97 fL (80-94); Mean Platelet Volume 7.1 fL (7.4-10.4); Nucleated Red Blood Cells % 0.1; Platelet Count 109 10^3/ul (150-450); Red Blood Count 3.77 10^6/ul (4.00-5.40); Red Cell Distribution Width 13 % (10.5-15)
[2018-12-04] MEDS: Heparin VIAL(*) 5000 UNITS/ML VIAL (FIVE THOUSAND) SUBCUT SCH ×2 (10:19→21:25)
[2018-12-04] MEDS: Timolol 0.5% OPTH.SOL* BTL BOTH EYES SCH ×2 (10:19→20:56)
[2018-12-04 10:24] LABS: BUN/Creatinine Ratio 20.3 (8-20); Calcium 8.3 mg/dL (8.6-10.3); EGFR African American 157.6 (>60); EGFR Non-African American 130.2 (>60); Potassium 4.1 mmol/L (3.5-5.0)
--- NOTE | 2018-12-04 14:26 | PN ---
Subjective Date of Service: 12/04/18 Interval History: Mr. Gordon offers no complaints. He denies any pain in his current position, but does have pain with movement. Denies CP or SOB. Son is at the bedside and is very concerned about his father remaining on bedrest. He feels as though he is declining mentally while here in the hospital and is anxious to get him home. He reports that he and his may attempt to get the patient OOB later today. He understands the risks associated with this and that no staff will be able to help d/t bedrest orders. He is concerned that it will take too long to get the MRI results today. Family History: Unchanged from Admission Social History: Unchanged from Admission Past Medical History: Unchanged from Admission Objective Active Medications: Acetaminophen (Tylenol Tab*) 650 mg PO Q6H Y[facility]IA Heparin Sodium (Porcine) (Heparin Vial(*)) 5,000 units SUBCUT Q12HR YUR[facility] Latanoprost (Xalatan 0.005%*) 1 drop BOTH EYES BEDTIME Y[facility] Ondansetron HCl (Zofran Inj*) 4 mg IV Q6H PRN NAUSEA Oxycodone/Acetaminophen (Percocet 5/325 Tab*) 1 tab PO Q6H PRN PAIN - MODERATE TO SEVERE Timolol Maleate (Timoptic 0.5% Opth*) 1 drop BOTH EYES BID [facility] Vital Signs - 8 hr 12/04/18 12/04/18 12/04/18 07:15 07:55 10:19 Temperature 97.7 F Pulse Rate 78 Respiratory 16 16 16 Rate Blood Pressure 128/54 (mmHg) O2 Sat by Pulse 95 Oximetry Oxygen Devices in Use Now: None Appearance: Elderly male laying in bed in NAD Eyes: No Scleral Icterus Ears/Nose/Mouth/Throat: Mucous Membranes Moist Neck: NL Appearance and Movements; NL JVP, Trachea Midline Respiratory: Symmetrical Chest Expansion and Respiratory Effort, Clear to Auscultation Cardiovascular: RRR, No Edema Abdominal: NL Sounds; No Tenderness; No Distention Extremities: No Edema Skin: No Rash or Ulcers Neurological: - - Oriented to self Lines/Tubes/Other Access: Clean, Dry and Intact Peripheral IV Nutrition: Taking PO's Result Diagrams: 12/04/18 09:52 12/04/18 09:52 Assess/Plan/Problems-Billing Assessment: Mr. Gordon is an 88 yr old male with PMH of aortic stenosis and glaucoma who sustained a mechanical fall at home and was admitted for compression fractures. - Patient Problems (1) Compression fx, lumbar spine Code(s): S32.000A - WEDGE COMPRESSION FRACTURE OF UNSP LUMBAR VERTEBRA, INIT Comment: - Lumbar Xray revealed severe compression fracture of L1 vetebral body and moderate compression fx of L4 with unknown chronicity - Appreciate Neurosurgery consult; plan for MRI lumbar spine today, bedrest until chronicity is determined - Continue Tylenol, Percocet (2) Compression fx, thoracic spine Code(s): S22.000A - WEDGE COMPRESSION FRACTURE OF UNSP THORACIC VERTEBRA, INIT Comment: - MRI shows 75% compression of T12 with no bone marrow edema, consistent with old fracture - Supportive care only - Continue Tylenol, Percocet (3) Aortic stenosis Code(s): I35.0 - NONRHEUMATIC AORTIC (VALVE) STENOSIS Comment: - With grade 3/6 systolic murmur, best heard RUSB - No previous echo at this facility; echo today (4) Glaucoma of both eyes Code(s): H40.9 - UNSPECIFIED GLAUCOMA Comment: - Continue latanoprost, timolol (5) DVT prophylaxis Comment: - Heparin SQ (6) DNR (do not resuscitate) Comment: Status and Disposition: Inpatient. Anticipate d/c back to [place] when medically stable, possibly tomorrow if lumbar fracture is chronic. Attending: Aaron Quigley
--- NOTE | 2018-12-04 17:29 | ECHO ---
Patient: NAV HUNT [facility] Rec#: [id number] : 1930 Date: 12/04/2018 Age: 88y Height: 178 cm / 70.1 in Weight: 57.2 kg / 126.1 lbs Sex: M BSA: 1.7 Room#: [facility] Admit Date#: 12/02/2018 Type: Inpatient Referring: Courtney Santiago MD Referring: Ruth Donovan Reading: Daniel Schuster MD Kitchen Operator: Lucy Kendall RN RDCS Transthoracic Echocardiogram Indication: Murmur BP: 124/44 HR: 65 Rhythm: NSR Findings History: Aortic stenosis, recent fall with T 12 compression fracture Technical Comments: The study is technically limited due to patient body habitus. The study was technically limited due to the patient's inability to lay in the left lateral decubitus position. Left Ventricle: The left ventricular chamber size is normal. Moderate concentric left ventricular hypertrophy is observed. Global left ventricular wall motion and contractility are within normal limits. There is normal left ventricular systolic function. The estimated ejection fraction is 60-65%. Abnormal left ventricular diastolic filling is observed, consistent with impaired relaxation. Left Atrium: The left atrium is mildly dilated. Right Ventricle: The right ventricular chamber size and systolic function are within normal limits. Right Atrium: The right atrium is mildly dilated. Aortic Valve: The aortic valve structure is not well visualized. The aortic valve leaflets are severely thickened with reduced systolic excursion. There is moderate aortic regurgitation. There is severe aortic stenosis. The mean gradient of the aortic valve is 55 mmHg. The peak instantaneous gradient of the aortic valve is 80 mmHg. The aortic valve area, by peak velocities, is calculated at 0.6 cm2. The aortic valve area, by VTI's, is calculated at 0.6 cm2. The dimensionless index is 0.22-0.24. The highest aortic valve velocity was obtained with the standard probe from the A5C view. Mitral Valve: There is mitral annular calcification. The mitral valve leaflets are mildly thickened. There is trace to mild mitral regurgitation. Tricuspid Valve: The tricuspid valve leaflets are normal. There is trace to mild tricuspid regurgitation. There is evidence of mild pulmonary hypertension. Pulmonic Valve: The pulmonic valve structure is not well visualized. There is a trace pulmonic regurgitation. There is no pulmonic stenosis. Pericardium: There is no significant pericardial effusion. Aorta: The ascending aorta is not well visualized. There is no dilatation of the aortic arch. There is mild dilatation of the aortic root. Pulmonary Artery: The main pulmonary artery is not well visualized. Venous: The venous system is not well visualized. The inferior vena cava is not visualized. Conclusions There is normal left ventricular systolic function. The estimated ejection fraction is 60-65%. Global left ventricular wall motion and contractility are within normal limits. The left ventricular chamber size is normal. Moderate concentric left ventricular hypertrophy is observed. Abnormal left ventricular diastolic filling is observed, consistent with impaired relaxation. The left atrium is mildly dilated. There is severe aortic stenosis. There is moderate aortic regurgitation. There is evidence of mild pulmonary hypertension. There is no prior echocardiogram available to compare with at this time. Measurements Name Value Normal Range RVDdMajor (2D) 3.5 cm (2.2 - 4.4) RAd ISD 4CH 5.5 cm (3.4 - 4.9) RA (A4C)W 4.8 cm (2.9 - 4.6) IVSd (2D) 1.4 cm (0.6 - 1) LVPWd (2D) 1.4 cm (0.6 - 1) LVIDd (2D) 4.3 cm (3.6 - 5.4) LVIDs (2D) 2.6 cm - LV FS (2D) 40 % (25 - 45) Aortic Annulus 1.8 cm (1.4 - 2.6) Ao root diameter (2D) 3.8 cm (2.1 - 3.5) Aortic arch 2.7 cm (1.8 - 3.4) LA dimension (AP) 2D 3.2 cm (2.3 - 3.8) LAd ISD 4CH 5.7 cm (2.9 - 5.3) LA ISD 4CH W 4.6 cm (2.5 - 4.5) Name Value Normal Range LA ESV BP (A/L) index 25.8 ml/m2 - Name Value Normal Range MV E-wave Vmax 0.79 m/sec - MV deceleration time 229 msec - MV A-wave Vmax 1.1 m/sec - MV E:A ratio 0.7 ratio - LV septal e' Vmax 0.05 m/sec - LV lateral e' Vmax 0.07 m/sec - LV E:e' septal ratio 15.8 ratio - LV E:e' lateral ratio 11.3 ratio - Name Value Normal Range AV Vmax 4.5 m/sec - AV VTI 118 cm - AV peak gradient 80 mmHg - AV mean gradient 55 mmHg - LVOT diameter 1.8 cm - LVOT Vmax 1.1 m/sec - LVOT VTI 25.8 cm - LVOT peak gradient 5 mmHg - LVOT mean gradient 3 mmHg - DOI (VTI) 0.22 ratio - DOI (Vmax) 0.24 ratio - MAC (continuity Vmax) 0.6 cm2 - MAC (continuity VTI) 0.6 cm2 - AR PHT 458 msec - ARNOLDO Vmax 0.86 m/sec - Name Value Normal Range TR Vmax 2.8 m/sec - TR peak gradient 31 mmHg - RAP 8 mmHg - RVSP 39 mmHg - Name Value Normal Range PV Vmax 0.75 m/sec -
[2018-12-04] MEDS: Latanoprost 0.005%* 2.5 ml BTL BOTH EYES SCH (21:11)
[2018-12-05] MEDS: Acetaminophen TAB* 325 MG PO SCH ×5 (08:59→22:28)
[2018-12-05] MEDS: oxyCODONE/Acetamin 5/325 MG* TAB PO PRN (09:01)
[2018-12-05] MEDS: Heparin VIAL(*) 5000 UNITS/ML VIAL (FIVE THOUSAND) SUBCUT SCH ×2 (09:05→22:33)
[2018-12-05] MEDS: Timolol 0.5% OPTH.SOL* BTL BOTH EYES SCH ×2 (09:05→22:26)
--- NOTE | 2018-12-05 13:28 | PN ---
Subjective Date of Service: 12/05/18 Interval History: Mr. Gordon is sleeping today after taking Percocet this morning. His son reports he has continued to have significant pain at rest. He was trying to avoid Percocet, but understands that it may be necessary for pain management. His son is still very concerned about the lack of progress here at the hospital. The patient did go down to MRI last night, but was unable to finish the test. Spoke with son at length about options going forward, and he agrees to move forward with a CT scan at this point, but knows this will not give us as much information as the MRI. Son likely would not want surgery or back brace if necessary as he does not feel these are realistic options. Family History: Unchanged from Admission Social History: Unchanged from Admission Past Medical History: Unchanged from Admission Objective Active Medications: Acetaminophen (Tylenol Tab*) 650 mg PO Q6H YURIDIA Heparin Sodium (Porcine) (Heparin Vial(*)) 5,000 units SUBCUT Q12HR Y[facility] Latanoprost (Xalatan 0.005%*) 1 drop BOTH EYES BEDTIME YURID[facility] Ondansetron HCl (Zofran Inj*) 4 mg IV Q6H PRN NAUSEA Oxycodone/Acetaminophen (Percocet 5/325 Tab*) 1 tab PO Q6H PRN PAIN - MODERATE TO SEVERE Timolol Maleate (Timoptic 0.5% Opth*) 1 drop BOTH EYES BID [facility] Vital Signs - 8 hr 12/05/18 12/05/18 12/05/18 07:38 08:00 09:01 Temperature 98.2 F Pulse Rate 69 Respiratory 20 18 16 Rate Blood Pressure 125/50 (mmHg) O2 Sat by Pulse 94 Oximetry Oxygen Devices in Use Now: None Appearance: Elderly male laying in bed in NAD Eyes: No Scleral Icterus Ears/Nose/Mouth/Throat: Mucous Membranes Moist Neck: NL Appearance and Movements; NL JVP, Trachea Midline Respiratory: Symmetrical Chest Expansion and Respiratory Effort, Clear to Auscultation Cardiovascular: NL Sounds; No Murmurs; No JVD, RRR Abdominal: NL Sounds; No Tenderness; No Distention Extremities: No Edema Neurological: - - Lethargic Lines/Tubes/Other Access: Clean, Dry and Intact Peripheral IV Nutrition: Taking PO's Result Diagrams: 12/04/18 09:52 12/04/18 09:52 Assess/Plan/Problems-Billing Assessment: Mr. Gordon is an 88 yr old male with PMH of aortic stenosis, dementia, and glaucoma who sustained a mechanical fall at home and was admitted for compression fractures. - Patient Problems (1) Compression fx, lumbar spine Code(s): S32.000A - WEDGE COMPRESSION FRACTURE OF UNSP LUMBAR VERTEBRA, INIT Comment: - Lumbar Xray revealed severe compression fracture of L1 vetebral body and moderate compression fx of L4 with unknown chronicity - Appreciate Neurosurgery consult; recommends MRI - Check CT lumbar spine today to determine the stability of fracture as MRI is not a viable option at this point d/t pt's wishes; will order PT eval if fracture is stable - Continue Tylenol, Percocet (2) Compression fx, thoracic spine Code(s): S22.000A - WEDGE COMPRESSION FRACTURE OF UNSP THORACIC VERTEBRA, INIT Comment: - MRI shows 75% compression of T12 with no bone marrow edema, consistent with old fracture - Supportive care only - Continue Tylenol, Percocet (3) Aortic stenosis Code(s): I35.0 - NONRHEUMATIC AORTIC (VALVE) STENOSIS Comment: - Asymptomatic - With grade 3/6 systolic murmur, best heard RUSB - Echo shows severe which son says is consistent with previous echo done at [place]; they have previously declined a TAVR and wish to continue with medical management (4) Dementia Code(s): F03.90 - UNSPECIFIED DEMENTIA WITHOUT BEHAVIORAL DISTURBANCE Comment : - Supportive care (5) Glaucoma of both eyes Code(s): H40.9 - UNSPECIFIED GLAUCOMA Comment: - Continue latanoprost, timolol (6) DVT prophylaxis Comment: - Heparin SQ (7) DNR (do not resuscitate) Comment: Status and Disposition: Inpatient. Pending CT results and PT eval if possible. Anticipate d/c back to [place] when medically stable. Attending: Micah Keen
[2018-12-05] MEDS: Latanoprost 0.005%* 2.5 ml BTL BOTH EYES SCH (22:26)
[2018-12-06] MEDS: Acetaminophen TAB* 325 MG PO SCH ×4 (07:12→21:29)
[2018-12-06] MEDS: Heparin VIAL(*) 5000 UNITS/ML VIAL (FIVE THOUSAND) SUBCUT SCH (08:44)
[2018-12-06] MEDS: Timolol 0.5% OPTH.SOL* BTL BOTH EYES SCH ×2 (08:44→21:29)
--- NOTE | 2018-12-06 14:30 | PN ---
Subjective Date of Service: 12/06/18 Interval History: Mr. Gordon has been sleeping most of the day. His [id number] is sitting at bedside. She reports that he startles easily when people are in the room and he has been very resistant to all care. He did not want to work with PT today and is not interested in lunch. He offers no complaints except for wanting me to leave him alone. Family History: Unchanged from Admission Social History: Unchanged from Admission Past Medical History: Unchanged from Admission Objective Active Medications: Acetaminophen (Tylenol Tab*) 650 mg PO Q6H YURIDIA Heparin Sodium (Porcine) (Heparin Vial(*)) 5,000 units SUBCUT Q12HR YURIDIA Latanoprost (Xalatan 0.005%*) 1 drop BOTH EYES BEDTIME YURIDIA Ondansetron HCl (Zofran Inj*) 4 mg IV Q6H PRN NAUSEA Oxycodone/Acetaminophen (Percocet 5/325 Tab*) 1 tab PO Q6H PRN PAIN - MODERATE TO SEVERE Timolol Maleate (Timoptic 0.5% Opth*) 1 drop BOTH EYES BID [facility] Vital Signs - 8 hr 12/06/18 12/06/18 12/06/18 07:45 08:00 10:41 Temperature 97.7 F 97.4 F Pulse Rate 64 65 Respiratory 16 20 14 Rate Blood Pressure 137/49 131/52 (mmHg) O2 Sat by Pulse 96 94 Oximetry Oxygen Devices in Use Now: None Appearance: Elderly male laying in bed in NAD Eyes: No Scleral Icterus Ears/Nose/Mouth/Throat: Mucous Membranes Moist Neck: NL Appearance and Movements; NL JVP, Trachea Midline Respiratory: Symmetrical Chest Expansion and Respiratory Effort, Clear to Auscultation Cardiovascular: RRR, - - Grade 3/6 systolic murmur Abdominal: NL Sounds; No Tenderness; No Distention Extremities: No Edema Neurological: - - Drowsy, wakes to voice, oriented to self Lines/Tubes/Other Access: Clean, Dry and Intact Peripheral IV Nutrition: Taking PO's Result Diagrams: 12/04/18 09:52 12/04/18 09:52 Assess/Plan/Problems-Billing Assessment: Mr. Gordon is an 88 yr old male with PMH of aortic stenosis, dementia, and glaucoma who sustained a mechanical fall at home and was admitted for compression fractures. - Patient Problems (1) Compression fx, lumbar spine Code(s): S32.000A - WEDGE COMPRESSION FRACTURE OF UNSP LUMBAR VERTEBRA, INIT Comment: - Lumbar Xray revealed severe compression fracture of L1 vetebral body and moderate compression fx of L4 with unknown chronicity - CT lumbar spine shows chronic L1 fracture, acute/subacute L4 burst fracture - Appreciate Neurosurgery consult; recommends taking off bedrest, brace would only be necessary for pain control - Family not interested in any invasive measures and is understanding of prognosis - PT/OT - Continue Tylenol, Percocet (2) Compression fx, thoracic spine Code(s): S22.000A - WEDGE COMPRESSION FRACTURE OF UNSP THORACIC VERTEBRA, INIT Comment: - MRI shows 75% compression of T12 with no bone marrow edema, consistent with old fracture - Supportive care only - Continue Tylenol, Percocet (3) Aortic stenosis Code(s): I35.0 - NONRHEUMATIC AORTIC (VALVE) STENOSIS Comment: - Asymptomatic - With grade 3/6 systolic murmur, best heard RUSB - Echo shows severe which son says is consistent with previous echo done at [place]; they have previously declined a TAVR and wish to continue with medical management (4) Dementia Code(s): F03.90 - UNSPECIFIED DEMENTIA WITHOUT BEHAVIORAL DISTURBANCE Comment : - Supportive care (5) Glaucoma of both eyes Code(s): H40.9 - UNSPECIFIED GLAUCOMA Comment: - Continue latanoprost, timolol (6) DVT prophylaxis Comment: - Heparin SQ (7) DNR (do not resuscitate) Comment: Status and Disposition: Inpatient. Stable for discharge. Needs MELVIN. Attending: Micah Keen
[2018-12-06] MEDS: oxyCODONE/Acetamin 5/325 MG* TAB PO PRN (15:42)
[2018-12-06] MEDS: Latanoprost 0.005%* 2.5 ml BTL BOTH EYES SCH (21:29)
[2018-12-06] MEDS: Enoxaparin(*) 40 MG/0.4 ML SYR SUBCUT SCH (21:29)
[2018-12-07] MEDS: Acetaminophen TAB* 325 MG PO SCH ×4 (05:59→21:50)
[2018-12-07] MEDS: Timolol 0.5% OPTH.SOL* BTL BOTH EYES SCH ×2 (09:41→21:50)
[2018-12-07] MEDS: Enoxaparin(*) 40 MG/0.4 ML SYR SUBCUT SCH (16:15)
--- NOTE | 2018-12-07 17:47 | PN ---
Subjective Date of Service: 12/07/18 Interval History: Patient seen and examined. Complaints of lower back pain but states pain meds are helping. Is OOB to chair and tolerating well. Denies SOB, no chest pain, no radicular symptoms, no neuro deficits. Family History: Unchanged from Admission Social History: Unchanged from Admission Past Medical History: Unchanged from Admission Objective Active Medications: Acetaminophen (Tylenol Tab*) 650 mg PO Q6H [facility] Last Admin: 12/07/18 16:13 Dose: 650 mg Enoxaparin Sodium (Lovenox(*)) 40 mg SUBCUT Q24H [facility] Last Admin: 12/07/18 16:15 Dose: 40 mg Latanoprost (Xalatan 0.005%*) 1 drop BOTH EYES BEDTIME [facility] Last Admin: 12/06/18 21:29 Dose: 1 drop Ondansetron HCl (Zofran Inj*) 4 mg IV Q6H PRN PRN Reason: NAUSEA Oxycodone/Acetaminophen (Percocet 5/325 Tab*) 1 tab PO Q6H PRN PRN Reason: PAIN - MODERATE TO SEVERE Last Admin: 12/06/18 15:42 Dose: 1 tab Timolol Maleate (Timoptic 0.5% Opth*) 1 drop BOTH EYES BID [facility] Last Admin: 12/07/18 09:41 Dose: 1 drop Vital Signs - 8 hr 12/07/18 16:17 Temperature 97.8 F Pulse Rate 71 Respiratory 24 Rate Blood Pressure 125/39 (mmHg) O2 Sat by Pulse 97 Oximetry Oxygen Devices in Use Now: None Appearance: alert, NAD Eyes: No Scleral Icterus, PERRLA Ears/Nose/Mouth/Throat: Mucous Membranes Moist Neck: NL Appearance and Movements; NL JVP, Trachea Midline Respiratory: Symmetrical Chest Expansion and Respiratory Effort, Clear to Auscultation Cardiovascular: RRR - Grade III/ mumur, No Edema Abdominal: NL Sounds; No Tenderness; No Distention Extremities: No Edema, No Clubbing, Cyanosis, - - point tenderness across lower lumbar region Skin: No Nodules or Sclerosis Neurological: - - A&O x2 Nutrition: Taking PO's Result Diagrams: 12/04/18 09:52 12/04/18 09:52 Additional Lab and Data: Laboratory Results - last 24 hr 12/02/18 12/02/18 12/02/18 20:55 20:55 20:55 WBC 7.6 RBC 3.88 L Hgb 12.7 L Hct 38 L MCV 98 H MCH 33 H MCHC 33 RDW 13 Plt Count 121 L MPV 7.4 Neut % (Auto) 85.5 Lymph % (Auto) 6.8 Dewey % (Auto) 7.1 Eos % (Auto) 0.3 Baso % (Auto) 0.3 Absolute Neuts (auto) 6.5 Absolute Lymphs (auto) 0.5 L Absolute Monos (auto) 0.5 Absolute Eos (auto) 0 Absolute Basos (auto) 0 Absolute Nucleated RBC 0 Nucleated RBC % 0 Sodium Potassium Chloride Carbon Dioxide Anion Gap BUN Creatinine Est GFR ( Amer) Est GFR (Non-Af Amer) BUN/Creatinine Ratio Glucose Lactic Acid 2.0 Calcium Total Bilirubin AST ALT Alkaline Phosphatase Total Protein Albumin Globulin Albumin/Globulin Ratio Urine Color Yellow Urine Appearance Cloudy Urine pH 5.0 Ur Specific Vaughn 1.025 Urine Protein Negative Urine Ketones Negative Urine Blood Negative Urine Nitrate Negative Urine Bilirubin Negative Urine Urobilinogen Negative Ur Leukocyte Esterase Negative Urine Glucose Negative 12/02/18 20:55 WBC RBC Hgb Hct MCV MCH MCHC RDW Plt Count MPV Neut % (Auto) Lymph % (Auto) Dewey % (Auto) Eos % (Auto) Baso % (Auto) Absolute Neuts (auto) Absolute Lymphs (auto) Absolute Monos (auto) Absolute Eos (auto) Absolute Basos (auto) Absolute Nucleated RBC Nucleated RBC % Sodium 139 Potassium 3.8 Chloride 105 Carbon Dioxide 31 Anion Gap 3 BUN 19 Creatinine 0.64 L Est GFR ( Amer) 143.5 Est GFR (Non-Af Amer) 118.6 BUN/Creatinine Ratio 29.7 H Glucose 170 H Lactic Acid Calcium 8.6 Total Bilirubin 0.70 AST 30 ALT 17 Alkaline Phosphatase 47 Total Protein 6.1 L Albumin 3.6 Globulin 2.5 Albumin/Globulin Ratio 1.4 Urine Color Urine Appearance Urine pH Ur Specific Vaughn Urine Protein Urine Ketones Urine Blood Urine Nitrate Urine Bilirubin Urine Urobilinogen Ur Leukocyte Esterase Urine Glucose Assess/Plan/Problems-Billing Assessment: Mr. Gordon is an 88 yr old male with PMH of aortic stenosis, dementia, and glaucoma who sustained a mechanical fall at home and was admitted for compression fractures. - Patient Problems (1) Compression fx, lumbar spine Code(s): S32.000A - WEDGE COMPRESSION FRACTURE OF UNSP LUMBAR VERTEBRA, INIT SNOMED Code(s): 851148301 Comment: - Lumbar Xray revealed severe compression fracture of L1 vetebral body and moderate compression fx of L4 with unknown chronicity - CT lumbar spine shows chronic L1 fracture, acute/subacute L4 burst fracture - Appreciate Neurosurgery consult; recommends taking off bedrest, brace would only be necessary for pain control - Family not interested in any invasive measures and is understanding of prognosis - Continue PT/OT in anticipation of likely need for STR - Continue Tylenol, Percocet (2) Compression fx, thoracic spine Code(s): S22.000A - WEDGE COMPRESSION FRACTURE OF UNSP THORACIC VERTEBRA, INIT SNOMED Code(s): 230229958 Comment: - MRI shows 75% compression of T12 with no bone marrow edema, consistent with old fracture - Supportive care only, brace if needed for pain but patient seems to be tolerating without - Continue pain control with Tylenol, Percocet (3) Aortic stenosis Code(s): I35.0 - NONRHEUMATIC AORTIC (VALVE) STENOSIS SNOMED Code(s): 91107011 Comment: - Asymptomatic with notable murmur - Echo shows severe which son says is consistent with previous echo done at [place]; they have previously declined a TAVR and wish to continue with medical management (4) Dementia Code(s): F03.90 - UNSPECIFIED DEMENTIA WITHOUT BEHAVIORAL DISTURBANCE SNOMED Code(s): 33153983 Comment: - Mild, continue supportive care (5) Glaucoma of both eyes Code(s): H40.9 - UNSPECIFIED GLAUCOMA SNOMED Code(s): 22148956 Comment: - Continue latanoprost, timolol drops (6) DVT prophylaxis Code(s): UVL0410 - SNOMED Code(s): 716303054 Comment: - Heparin SQ (7) DNR (do not resuscitate) Comment: Status and Disposition: Inpatient. Stable for discharge. Needs STR, appreciate assistance from CM and SW.
[2018-12-07] MEDS: Latanoprost 0.005%* 2.5 ml BTL BOTH EYES SCH (21:50)
[2018-12-08] MEDS: Acetaminophen TAB* 325 MG PO SCH ×2 (05:58→11:04)
[2018-12-08] MEDS: Timolol 0.5% OPTH.SOL* BTL BOTH EYES SCH (11:05)
--- NOTE | 2018-12-08 13:11 | DS ---
CC: Dr. Burns, Neurology; Dr. Irina Martines, Palliative Care; Dr. Courtney Santiago * DATE OF ADMISSION: 12/02/2018. DATE OF DISCHARGE: 12/08/2018. PRIMARY CARE PHYSICIAN: Dr. Courtney Santiago. MY ATTENDING PHYSICIAN FOR TODAY: Dr. Quigley * (dictated by Bettie Costa NP). HOSPITAL COURSE: Please refer to admission history and physical dated 2018. In short, this is an 88-year-old male patient with a medical history only for aortic stenosis, glaucoma, and some mild dementia who reported to the emergency department with family after sustaining a fall at approximately 3 o' clock in the afternoon. The patient described slipping out of the chair. He did not lose consciousness. He had no prodromal symptoms and no further qualifying events. The patient was not able to ambulate and had a significant amount of lower back pain. He had imaging in the emergency department which showed a compression fracture of T12. Neurosurgery was contacted who recommended at that time the patient be admitted and have additional imaging with MRI. The patient underwent several images, CT of the brain, pelvis, thoracic spine, cervical spine, and lumbar spine. He also had a lumbar spine x-ray and thoracic spine MRI over the course of three days. The lumbar x-ray showed a severe compression fracture of L1 and moderate compression fracture of L4. CT of the lumbar spine showed a chronic L1 fracture, acute and subacute L4 burst fracture. MRI showed 75 percent compression of the T12 fracture without bone marrow edema which appeared to be old. The patient did have an echocardiogram because of his aortic stenosis which classified as severe which was not a change from his previous imaging. Per the record, the patient and family have declined having a TAVR procedure for this aortic stenosis. Essentially, the patient was given pain medication and physical therapy evaluation. Conservative treatment was recommended. Dr. Burns did say the patient could wear a brace for pain relief if needed; however, the patient seems to be responding well to alternating Percocet and Tylenol and is ambulating more and more each day. He says the pain is better controlled today. Because of his acute on chronic fractures, it was recommended that the patient have short-term rehab. He was accepted at [facility]. The patient will be discharged to [facility] later today. DISCHARGE DIAGNOSES: 1. Back pain with compression fractures to lumbar and thoracic spine. 2. History of aortic stenosis, stable. 3. History of mild dementia, stable. 4. Glaucoma, currently stable. DISCHARGE MEDICATIONS: 1. Tylenol 650 mg p.o. q.6 hours as needed. 2. Oxycodone 5/325 mg one tab p.o. q.6 hours as needed. 3. Latanoprost eye drops at bedtime. 4. Timoptic one drop both eyes 2 times a day. REVIEW OF SYSTEMS: The patient denies any fever, fatigue, or chills. No dizziness. No headache. He does have some back pain which is diffuse in nature from the thoracic down to the lumbar region. He denies any shortness of breath, no chest pain, no nausea, no vomiting, no abdominal pain, no further constitutional complaints. PHYSICAL EXAMINATION: General: Reveals an elderly, frail-appearing male in no acute distress. Vital Signs: Blood pressure 131/53, heart rate 76, O2 saturation 95 percent on room air, respiratory rate 18, temperature 97.5. HEENT : The patient is atraumatic, normocephalic. PERRLA with nonicteric sclerae. Oral mucosa is moist. Tongue is midline. Neck: Supple, nontender. No JVD noted. No carotid bruit auscultated. Cardiovascular: S1, S2 present. He has a grade 3 systolic murmur noted. Otherwise, no gallops or rubs. Lungs: Clear bilaterally to auscultation with no wheezing, rhonchi, or rales. Abdomen: Soft , nontender, nondistended. Positive bowel sounds all four quadrants. : Deferred. Musculoskeletal: There is point tenderness diffusely across the thoracic region centrally over the spinous processes and into the lumbar spine radiating laterally on both the left and right across the lower lumbar and into the sacrum. There is no clubbing, no cyanosis. He does have good range of motion. Motor and sensation are grossly intact. He is showing no radicular symptoms. No paresthesias. He is ambulating with a walker. Neurologic: He is grossly intact. He is forgetful with some mild dementia, but is otherwise alert to person and place and is able to make his needs known. Psychiatric: He is cooperative and appropriate. LABORATORY DATA: WBC 5.0, RBC 3.77, hemoglobin 12.4, hematocrit 37, platelets 109; sodium 137, potassium 4.1, chloride 106, CO2 28, BUN 12, creatinine 0.59, GFR 130.2, glucose 90, lactic acid 2.0, calcium 8.3, bilirubin 0.70, LFT's were normal. Urinalysis shows no acute infected process. IMAGING: Imaging as summarized above. DISPOSITION: The patient will be discharged to [facility] for short-term rehab. Plan of care has been discussed with case management and the patient's son who is his healthcare proxy. DIET: The patient should have a heart-healthy diet as tolerated. ACTIVITY: Progress activity as tolerated. FOLLOW-UP: The patient is instructed to follow-up with Dr. Santiago, his primary care physician after discharge from rehab. He may also follow-up with Dr. Burns on an as needed basis for his compression fractures. The patient was discharged in stable condition by a stretcher to [facility]. Case Management discussed the discharge plan of care with the patient's son. Please refer to Case Management documentation. TIME SPENT: Thirty-five minutes interfacing with the patient and planning discharge plan of care. BETTIE COSTA NP [id number]/[facility] #: [id number] COURTNEY
[2018-12-08 13:45] VITALS: BP 117/47
[2018-12-08] MEDS: oxyCODONE/Acetamin 5/325 MG* TAB PO PRN (14:33)
== END 2018-12-08 15:10 | DRG 552 ==
LOC: ED 17:55 → MED 22:30 → OBSVTOIN 12-04 14:00
PROVIDERS: ADMIT Internal Medicine; ATTEND Internal Medicine
DX: S32.041A Stable burst fracture of fourth lumbar vertebra, initial encounter for closed fracture (principal); J90 Pleural effusion, not elsewhere classified; F03.90 Unspecified dementia, unspecified severity, without behavioral disturbance, psychotic disturbance, mood disturbance, and anxiety; I35.0 Nonrheumatic aortic (valve) stenosis; S32.019D Unspecified fracture of first lumbar vertebra, subsequent encounter for fracture with routine healing; S22.089D Unspecified fracture of T11-T12 vertebra, subsequent encounter for fracture with routine healing; W07.XXXA Fall from chair, initial encounter; Y92.009 Unspecified place in unspecified non-institutional (private) residence as the place of occurrence of the external cause; Z66 Do not resuscitate; H40.9 Unspecified glaucoma; Z79.899 Other long term (current) drug therapy; Z82.49 Family history of ischemic heart disease and other diseases of the circulatory system
CPT/HCPCS: 36415; 70450; 72110; 72125; 72128; 72131; 72146; 72192; 80048; 80053; 81003; 83605; 85025; 93005; 93306; 99284; A9270-GY; G0378; G8978-GP-CM; G8979-GP-CI; G8987-GO-CK; G8988-GO-CI; J1644; J1650

== ENCOUNTER 2019-04-16 22:02 | Emergency (ER) | payer MEDICARE, BC ==
--- OUTSIDE RECORDS SUMMARY | 2019-04-16 22:37 | XMS REPORT | Continuity of Care Document ---
:1930 External Reference #:[id number] Author Name Alecemiliano Nessa Care Team Providers Name Role Phone Krista Maldonado MD Primary Care Physician Unavailable Payers Date Identification Numbers Payment Provider Subscriber Policy Number: [id number] Medicare Pieter Gordon PayID: [id number] [address] [place] [address] Effective: 2016 Policy Number: [id number] [facility] Pieter Gordon JR PayID: [id number] [address] [place] [address] Problems Active Problems Provider Date Localized, secondary osteoarthritis of the ankle Juli Ewing M.D. Onset: and/or foot Localized, primary osteoarthritis of Akash Ewing M.D. Onset: 02/19/2016 shoulder region Family History Date Family Member(s) Observation Comments General No Current Problems Social History Type Date Description Comments Sex Unknown Lives With Alone Occupation Retired ETOH Use Denies alcohol use Tobacco Use Start: Unknown Patient has never smoked Smoking Status Reviewed: 03/19/19 Patient has never smoked Exercise Type/Frequency Exercises sporadically Allergies, Adverse Reactions, Alerts Description No Known Drug Allergies Medications Active Medications SIG Qnty Indications Ordering Provider Date Latanoprost one drop both Krista Maldonado MD 03/19/2019 0.005% eyes daily at Solution bedtime Timolol Maleate Instill one drop Krista Maldonado MD 03/19/2019 0.5% in both eyes two (Daily) Solution times daily Sertraline HCL Take 2 tablets at Krista Maldonado MD 03/19/2019 25mg night at bedtime Tablets Transport Chair Use as needed 1units R29.6 Krista Maldonado MD 03/19/2019 Misc Rolling Walker (Gianluca) Use for walking 1units R29.6 Krista Maldonado MD 2018 History Medications Meloxicam 03/19/19 reports 60tabs Criselda Chacon, 01/16/2017 - 7.5mg not taking at M.D. 03/19/2019 Tablets this time take 1 pill twice a day by mouth Meloxicam 03/19/19 reorts 60tabs M19.012 Criselda Chacon, 03/14/2016 - 7.5mg not taking at M.D. 03/19/2019 Tablets this time 1 by mouth twice a day Ibu-200 3 tabs as Unknown - 200mg Tablets needed 03/19/2019 Aspir-81 03/19/19 reports Unknown - 81mg Tablets not taking 1 by 03/19/2019 DR oshea every day Lutein 03/19/19 reports Unknown - not taking 03/19/2019 Bilberry 03/19/19 reports Unknown - not taking 03/19/2019 Multivitamin 03/19/19 reports Unknown - not taking 03/19/2019 Medications Administered in Office Medication SIG Qnty Indications Ordering Provider Date Brian John, Chelsi Chacon M.D. 09/02/2016 Intra-Articular Inject Per Dose Injection Brian John, Chelsi Chacon M.D. 08/26/2016 Intra-Articular Inject Per Dose Injection Hyalagan Or Dora, Chelsi Chacon M.D. 08/19/2016 Intra-Articular Inject Per Dose Injection Christineagan Or Dora, Chelsi Chacon M.D. 08/12/2016 Intra-Articular Inject Per Dose Injection Hyalagan Or Dora, For Criselda Chacon M.D. 07/29/2016 Intra-Articular Inject Per Dose Injection Depomedrol 40MG Juli wEing M.D. 02/19/2016 Injection Vital Signs Date Vital Result Comment 03/19/2019 1:30pm Height 70 inches 5'10" Weight 137.00 lb Heart Rate 70 /min BP Systolic Sitting 120 mmHg BP Diastolic Sitting 56 mmHg Body Temperature 96.9 F O2 % BldC Oximetry 93 % BMI (Body Mass Index) 19.7 kg/m2 09/02/2016 9:49am Height 70 inches 5'10" Weight 135.00 lb Pain Level 3 BMI (Body Mass Index) 19.4 kg/m2 08/26/2016 10:27am Height 70 inches 5'10" Weight 135.00 lb Pain Level 5 BMI (Body Mass Index) 19.4 kg/m2 08/19/2016 10:02am Height 70 inches 5'10" Weight 135.00 lb Pain Level 5 BMI (Body Mass Index) 19.4 kg/m2 08/12/2016 10:03am Height 70 inches 5'10" Weight 135.00 lb BMI (Body Mass Index) 19.4 kg/m2 07/29/2016 10:31am Height 70 inches 5'10" Weight 135.00 lb Pain Level 7 BMI (Body Mass Index) 19.4 kg/m2 03/14/2016 1:54pm Height 70 inches 5'10" Weight 135.00 lb Heart Rate 54 /min BP Systolic 101 mmHg BP Diastolic 50 mmHg Pain Level 7 BMI (Body Mass Index) 19.4 kg/m2 Procedures Date Code Description Status 12/04/2018 10537 ECHO Transthorasic Realtime 2D W Doppler & Color Flow Hosp Completed 09/02/201653829 Inject/Drain Joint/Bursa Major W/O US Completed 08/26/2016 Inject/Drain Joint/Bursa Major W/O US Completed 08/19/2016 Inject/Drain Joint/Bursa Major W/O US Completed 08/12/2016 Inject/Drain Joint/Bursa Major W/O US Completed 07/29/2016 Inject/Drain Joint/Bursa Major W/O US Completed 02/19/2016 Inject/Drain Joint/Bursa Major W/O US Completed Encounters Type Date Location Provider Dx Diagnosis Office Visit 12/07/2018 [facility] S32.000A Wedge compression 8:22a Assoc,pc Jaz Doto, fracture of unsp Hospitalists PHILOSOPHY INSTRUCTOR lumbar vertebra, init S22.000D Wedge comprsn fx unsp thor vert, subs for fx w routn heal I35.0 Nonrheumatic aortic (valve) stenosis F03.90 Unspecified dementia without behavioral disturbance Office Visit 12/06/2018 [facility] Rossana Santosh, S32.000A Wedge compression 8:22a Assoc,pc PHILOSOPHY INSTRUCTOR fracture of unsp Hospitalists lumbar vertebra, init S22.080D Wedge comprsn fx T11-T12 vertebra, subs for fx w routn heal I35.0 Nonrheumatic aortic (valve) stenosis F03.90 Unspecified dementia without behavioral disturbance Office Visit 12/05/2018 [facility] Rossana Santosh, S32.000A Wedge compression 8:22a Assoc,pc PHILOSOPHY INSTRUCTOR fracture of unsp Hospitalists lumbar vertebra, init S22.080D Wedge comprsn fx T11-T12 vertebra, subs for fx w routn heal I35.0 Nonrheumatic aortic (valve) stenosis F03.90 Unspecified dementia without behavioral disturbance Office Visit 12/04/2018 [facility] Rossana Santosh, S32.000A Wedge compression 8:21a Assoc,pc PHILOSOPHY INSTRUCTOR fracture of unsp Hospitalists lumbar vertebra, init S22.080D Wedge comprsn fx T11-T12 vertebra, subs for fx w routn heal I35.0 Nonrheumatic aortic (valve) stenosis H40.9 Unspecified glaucoma Office Visit 12/04/2018 [facility] S22.089A Unsp fracture 7:00a Services Of Zuleima Burns MD of T11-T12 vertebra, init for clos fx Office Visit 12/03/2018 [facility] S22.089A Unsp fracture 7:00a Services Of [facility] Burns MD of T11-T12 vertebra, init for clos fx Office Visit 12/03/2018 Palliative Care Irina Martines, J90 Pleural 8:20a Services Of Zuleima EDMOND effusion, not elsewhere classified F03.90 Unspecified dementia without behavioral disturbance I35.0 Nonrheumatic aortic (valve) stenosis W19.xxxA Unspecified fall, initial encounter Office Visit 12/02/2018 [facility] S22.080A Wedge 8:17a Assoc,pc MD Wes compression Hospitalists fracture of T11-T12 vertebra, init I35.0 Nonrheumatic aortic (valve) stenosis J90 Pleural effusion, not elsewhere classified W19.xxxA Unspecified fall, initial encounter Office Visit 03/14/2016 Orthopedic Criselda M19.012 Primary 2:00p Services Of Sahra Chacon osteoarthritis, left C.M.A. shoulder Office Visit 02/28/2016 Orthopedic Lexa M19.172 Post-traumatic 2:20p Services Of [facility] Rico osteoarthritis, left C.M.A. ankle and foot Office Visit 02/19/2016 Orthopedic Juli Ewing, M25.572 Pain in left ankle 2:30p Services Of Sahra and joints of left C.M.A. 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 Posadas ( Dr. Walker office)I35.0 Nonrheumatic aortic (valve) stenosisNew Orders: Echocardiogram, Ordered: 03/19/19Follow up:F/U 6 months
--- NOTE | 2019-04-16 22:43 | ED ---
Head Injury - HPI Summary HPI Summary: Patient is a 88 y/o M presenting to ED via EMS from [facility] with son with complaints of witnessed mechanical fall and subsequent posterior head injury. He states that he was in the dining villatoro, stood up, lost his balance and experienced a fall subsequently. He notes some soreness at posterior of head and at his left elbow. Son notes that the patient walks at baseline. He is not on any blood thinners. Son notes that the patient had a compression fracture a few months ago. On triage, pain is rated 8/10, nothing is noted to aggravate/ alleviate Sx. Home medications and allergies are reviewed. - History Of Current Complaint Chief Complaint: EDFall Stated Complaint: "FALL/ HEAD LACERATION PER EMS" Time Seen by Provider: 04/16/19 22:23 Hx Obtained From: Patient Mechanism Of Injury: Fall From A Standing Position Onset/Duration: Still Present Onset of Pain: Prior to Arrival Severity Currently: Severe Pain Intensity: 8 Pain Scale Used: 0-10 Numeric Location of Head Injury: Occipital Character: Other: - soreness Aggravating Factor(s): Other: - nothing Alleviating Factor(s): Other: - nothing Associated Signs And Symptoms: Other: - posterior head pain, left elbow pain - Allergies/Home Medications Allergies/Adverse Reactions: Allergies Allergy/AdvReac Type Severity Reaction Status Date / Time No Known Allergies Allergy Verified 12/02/18 18:04 Home Medications: Home Medications Acetaminophen TAB* [Tylenol TAB*] 325 mg PO Q4HR PRN 04/16/19 [History Confirmed 04/16/19] Sertraline HCl 50 mg PO DAILY 04/16/19 [History Confirmed 04/16/19] PMH/Surg Hx/FS Hx/Imm Hx Endocrine/Hematology History: Denies: Hx Anticoagulant Therapy, Hx Diabetes Cardiovascular History: Denies: Hx Atrial Fibrillation, Hx Myocardial Infarction, Hx Pacemaker/ICD Respiratory History: Denies: Hx Asthma, Hx Chronic Obstructive Pulmonary Disease (COPD) History: Denies: Hx Chronic Renal Failure Sensory History: Reports: Hx Contacts or Glasses Denies: Hx Hearing Aid Opthamlomology History: Reports: Hx Contacts or Glasses Neurological History: Denies: Hx CVA, Hx Seizures, Hx Spinal Cord Injury Psychiatric History: Denies: Hx Panic Disorder - Surgical History Surgery Procedure, Year, and Place: tonsils. left knee Hx Anesthesia Reactions: No - Immunization History Immunizations Up to Date: Yes Infectious Disease History: No Infectious Disease History: Denies: Traveled Outside the [place] in Last 30 Days - Family History Known Family History: Negative: Hypertension - Social History Alcohol Use: None Substance Use Type: Reports: None Smoking Status (MU): Never Smoked Tobacco Review of Systems Negative: Fever - on vitals, temp is 98.2 F Musculoskeletal: Other - positive - fall, head injury, posterior head pain, left elbow pain All Other Systems Reviewed And Are Negative: Yes Physical Exam - Summary Physical Exam Summary: Appearance: Well-appearing, Well-nourished, lying in bed comfortably, elderly, no acute distress Skin: Warm, dry, no obvious rash; there is a superficial skin tear at left elbow with active bleeding, dressing applied. Superficial 2 cm laceration to occipital area of head with minimal active bleeding Eyes: sclera anicteric, no conjunctival pallor ENT: mucous membranes moist, pharynx appears normal Neck: Supple, nontender Respiratory: Clear to auscultation, no signs of respiratory distress Cardiovascular: Normal S1, S2. No murmurs. Normal distal pulses in tibial and radial bilaterally. Abdomen: Soft, nontender, normal active bowel sounds present Musculoskeletal: Normal, Strength/ROM Intact; ecchymosis of olecranon, no associated tenderness Neurological: A&Ox3, awake and alert, mentation is normal, speech is fluent and appropriate; Hx of confusion but appears alert and at baseline; GCS 15. Psychiatric: affect is normal, does not appear anxious or depressed Triage Information Reviewed: Yes Vital Signs On Initial Exam: Initial Vitals Temp Pulse Resp BP Pulse Ox 98.2 F 77 21 123/60 92 04/16/19 22:11 04/16/19 22:11 04/16/19 22:11 04/16/19 22:11 04/16/19 22:11 Vital Signs Reviewed: Yes Diagnostics - Vital Signs Vital Signs Temp Pulse Resp BP Pulse Ox 04/16/19 22:11 98.2 F 77 21 123/60 92 - Laboratory Lab Statement: Any lab studies that have been ordered have been reviewed, and results considered in the medical decision making process. - Radiology LEFT ELBOW X-RAY Radiology Interpretation Completed By: ED Physician Summary of Radiographic Findings: No fracture, pending official report. - CT BRAIN CT CT Interpretation Completed By: Radiologist Summary of CT Findings: IMPRESSION: 1. There is stable age-related diffuse cerebral volume loss and chronic. microvascular ischemic disease. 2. There is significant mucosal thickening in the left frontal, left ethmoid. and left maxillary sinus with asymmetric wall thickening suspicious for chronic. sinusitis. 3. No acute intracranial pathology. THIS REPORT WAS REVIEWED BY DR. MASCORRO. Head Injury Course/Dx Course Of Treatment: Patient is a 88 y/o M presenting to ED via EMS from [facility] with son with complaints of witnessed mechanical fall and subsequent posterior head injury. He states that he was in the dining villatoro, stood up, lost his balance and experienced a fall subsequently. He notes some soreness at posterior of head and at his left elbow. Son notes that the patient walks at baseline. He is not on any blood thinners. Son notes that the patient had a compression fracture a few months ago. On physical exam, patient is noted to be in no acute distress, alert and oriented x3. GCS 15. Supericial 2 cm laceration to occipital area with minimal active bleeding. Left elbow has superficial skin tear with active bleeding, dressing applied. Ecchymosis at olecranon, no associated tenderness, has FROM of LUE. Left elbow X-ray showed no fracture. BRAIN CT IMPRESSION: 1. There is stable age-related diffuse cerebral volume loss and chronic. microvascular ischemic disease. 2. There is significant mucosal thickening in the left frontal, left ethmoid. and left maxillary sinus with asymmetric wall thickening suspicious for chronic. sinusitis. 3. No acute intracranial pathology. Patient will be discharged to home. - Diagnoses Provider Diagnoses: Fall, Scalp laceration, Laceration of left elbow Discharge - Sign-Out/Discharge Documenting (check all that apply): Patient Departure - discharge Patient Received Moderate/Deep Sedation with Procedure: No - Discharge Plan Condition: Stable Disposition: HOME Patient Education Materials: Head Injury (ED) Referrals: Krista Maldonado MD [Primary Care Provider] - If Needed - Billing Disposition and Condition Condition: STABLE Disposition: Home - Attestation Statements Document Initiated by Scribe: Yes Documenting Scribe: CALEB WOOD Provider For Whom Scribe is Documenting (Include Credential): LINDA MASCORRO MD Scribe Attestation: CALEB Grant, scribed for LINDA MASCORRO MD on 04/17/19 at 0532. Scribe Documentation Reviewed: Yes Provider Attestation: The documentation as recorded by the scribe, CALEB WOOD accurately reflects the service I personally performed and the decisions made by me, LINDA MASCORRO MD Status of Scribe Document: Viewed
[2019-04-17 01:58] VITALS: BP 126/71
== END 2019-04-17 01:57 | disposition home or self-care (01) ==
LOC: ED 22:02
DX: S01.01XA Laceration without foreign body of scalp, initial encounter (principal); S51.012A Laceration without foreign body of left elbow, initial encounter; R51 Headache; W19.XXXA Unspecified fall, initial encounter; Y92.129 Unspecified place in nursing home as the place of occurrence of the external cause
CPT/HCPCS: 70450; 99283

== ENCOUNTER 2019-06-10 19:05 | Emergency (ER) | payer MEDICARE, BC ==
--- NOTE | 2019-06-10 19:39 | ED ---
Head Injury - HPI Summary HPI Summary: 88-year-old male presents from [facility] for a head injury secondary to a fall. According to the EMS report patient fell while ambulating yesterday striking the back of his head. Patient had a second fall today while ambulating again striking the back of his head. There is no reported loss of consciousness with either episode. [facility] and has some underlying dementia. Patient has a MOLST form directing that he is not to be sent to the hospital unless than severe pain or having severe symptoms. Patient denies any pain, headache, or visual disturbances. - History Of Current Complaint Chief Complaint: EDFall Stated Complaint: FALL PER EMS Time Seen by Provider: 06/10/19 19:24 Hx Obtained From: Patient, Medical Records Pain Intensity: 0 - Allergies/Home Medications Allergies/Adverse Reactions: Allergies Allergy/AdvReac Type Severity Reaction Status Date / Time No Known Allergies Allergy Verified 12/02/18 18:04 PMH/Surg Hx/FS Hx/Imm Hx Endocrine/Hematology History: Denies: Hx Anticoagulant Therapy, Hx Diabetes Cardiovascular History: Denies: Hx Atrial Fibrillation, Hx Myocardial Infarction, Hx Pacemaker/ICD Respiratory History: Denies: Hx Asthma, Hx Chronic Obstructive Pulmonary Disease (COPD) History: Denies: Hx Chronic Renal Failure Sensory History: Reports: Hx Contacts or Glasses Denies: Hx Hearing Aid Opthamlomology History: Reports: Hx Contacts or Glasses Neurological History: Reports: Hx Dementia Denies: Hx CVA, Hx Seizures, Hx Spinal Cord Injury Psychiatric History: Denies: Hx Panic Disorder - Surgical History Surgery Procedure, Year, and Place: tonsils. left knee Hx Anesthesia Reactions: No Infectious Disease History: No Infectious Disease History: Denies: Traveled Outside the US in Last 30 Days - Family History Known Family History: Positive: Other - Dementia (father) - Social History Occupation: Retired [facility] Alcohol Use: None Substance Use Type: Reports: None Smoking Status (MU): Never Smoked Tobacco Review of Systems Constitutional: Negative Negative: Photophobia, Blurred Vision, Diplopia ENT: Negative Negative: Chest Pain Negative: Shortness Of Breath Negative: Abdominal Pain, Vomiting, Nausea Genitourinary: Negative Musculoskeletal: Negative Positive: Bruising Negative: Headache, Weakness, Paresthesia, Numbness, Slurred Speech All Other Systems Reviewed And Are Negative: Yes Physical Exam - Summary Physical Exam Summary: GENERAL APPEARANCE: Alert, pleasant, and cooperative older adult male who appears to be in no acute distress. HEAD: Normocephalic. Patient has a small area of ecchymosis approximately 2 cm in diameter to his posterior scalp as well as a moderate hematoma with ecchymosis approximately 4-5 cm in diameter to the posterior scalp (see diagram) . EYES: Conjunctiva clear. No drainage. PERRL, EOM intact. Vision is grossly intact. EARS: External auditory canals and tympanic membranes clear, hearing grossly intact. NOSE: No nasal discharge. NECK: Neck supple, non-tender. Full painless ROM. CARDIAC: Normal S1 and S2. No S3, S4 or murmurs. Rhythm is regular. There is no peripheral edema, cyanosis or pallor. Extremities are warm and well perfused. Capillary refill is less than 2 seconds. Peripheral pulses intact. LUNGS: Clear to auscultation without rales, rhonchi, wheezing or diminished breath sounds. ABDOMEN: Positive bowel sounds. Soft, nondistended, nontender. No guarding or rebound. No masses or hepatosplenomegally. MUSKULOSKELETAL: ROM intact to all extremities. No joint erythema or tenderness. Normal muscular development. BACK: Examination of the spine reveals no spinal deformity or tenderness, decreased range of motion or muscular spasm. EXTREMITIES: No significant deformity or joint abnormality. No edema. NEUROLOGICAL: CN II-XII intact. Strength and sensation symmetric and intact throughout. SKIN: Skin normal color, texture and turgor for age. Vital Signs On Initial Exam: Initial Vitals Temp Pulse Resp BP Pulse Ox 98.0 F 80 16 140/88 97 06/10/19 19:05 06/10/19 19:05 06/10/19 19:05 06/10/19 19:05 06/10/19 19:05 Diagnostics - Vital Signs Vital Signs Temp Pulse Resp BP Pulse Ox 06/10/19 19:05 98.0 F 80 16 140/88 97 - Laboratory Lab Statement: Any lab studies that have been ordered have been reviewed, and results considered in the medical decision making process. Head Injury Course/Dx Course Of Treatment: 88-year-old male presents from [facility] for a head injury secondary to a fall. According to the EMS report patient fell while ambulating with physical therapy yesterday striking the back of his head. Patient had a second fall today while ambulating with physical therapy again striking the back of his head. There is no reported loss of consciousness with either episode. [facility] and has some underlying dementia. Patient also has a MOLST form directing that he is not to be sent to the hospital less than severe pain or having severe symptoms. Patient denies any pain, headache, or visual disturbances. Afebrile. Hypertensive response and stable. Patient had a small area of ecchymosis as well as a moderate hematoma to his posterior scalp otherwise his exam was unremarkable. Because of the patient's MOLST directive I spoke directly to the son and he confirmed that they did not want any further evaluation or treatment at this time and requested that the patient be [facility] to the [facility]. We discussed at length that based on the patient's age that there is an increased risk of intracranial hemorrhage which the son acknoledges but states that he does not feel imaging is necessary as they have decided that they would not pursue any surgical interventions and are providing patient with comfort care only. [facility]. He is to follow up with his PCP in 1-2 days for re- evaluation. Anticipatory guidance and warning symptoms were reviewed with the son who verbalizes understanding. - Diagnoses Differential Diagnosis/HQI/PQRI: Cerebral Contusion, Concussion Without LOC, Contusion, Hematoma, Intracranial Bleed, Skull Fracture Provider Diagnoses: Acute head injury without loss of consciousness Discharge - Sign-Out/Discharge Documenting (check all that apply): Patient Departure Patient Received Moderate/Deep Sedation with Procedure: No - Discharge Plan Condition: Stable Disposition: HOME Patient Education Materials: Head Injury (ED) Referrals: Krista Maldonado MD [Primary Care Provider] - 2 Days (If needed.) Additional Instructions: On your exam he was noted to have a small contusion as well as a moderate hematoma to the posterior scalp. Recommend applying ice for 15-20 minutes at least 4 times a day to try to help with reducing the swelling. Based on your MOLST directive and family request no further treatments or studies were done at this time therefore I cannot fully rule out the possibility of any bleeding in the brain. Follow-up with your primary care provider in 2 days if needed. Return to the emergency room if you develop a severe headache, are difficult to arouse, have facial drooping, slurring or difficulty speaking, seizure-like activity, persistent or projectile vomiting, or any worsening of symptoms. - Billing Disposition and Condition Condition: STABLE Disposition: Home Images - Images Head: 1 - Eccymosis 2 - Hematoma - Attestation Statements Provider Attestation: the patient was seen by the midlevel provider, it was determined by them that it was not necessary for me to see the patient, I was available for consult during the patient's visit in the ED. I did not establish and patient-physician relationship. The chart however has been reviewed and I am signing in an administrative capacity.
[2019-06-10 21:37] VITALS: BP 132/84
== END 2019-06-10 21:10 | disposition home or self-care (01) ==
LOC: ED 19:05
DX: S09.90XA Unspecified injury of head, initial encounter (principal); W19.XXXA Unspecified fall, initial encounter; Y92.129 Unspecified place in nursing home as the place of occurrence of the external cause
CPT/HCPCS: 99282

== ENCOUNTER 2019-06-26 09:37 | Inpatient (IN) | payer MEDICARE, BC ==
[2019-06-26] MEDS ORDERED: Morphine 4 MG/ML VIAL (1 ml) 4 MG/ML VIAL IV ONE (11:21)
[2019-06-26] MEDS ORDERED: Atropine 1% (ORAL/SL)* 15 ML BTL SL PRN (12:24)
--- NOTE | 2019-06-26 12:29 | ADMNOTE ---
Subjective Date of Service: 06/26/19 Interval History: ADMISSION HISTORY AND PHYSICAL EXAM: Allergies Allergy/AdvReac Type Severity Reaction Status Date / Time No Known Allergies Allergy Verified 12/02/18 18:04 Home Medications Medication Instructions Recorded Confirmed Type Latanoprost 0.005% Eye Drop 1 drop BOTH EYES BEDTIME 12/02/18 04/16/19 History Timoptic 0.5% Opth* 1 drop BOTH EYES BID 12/02/18 04/16/19 History Acetaminophen TAB* [Tylenol TAB*] 325 mg PO Q4HR PRN 04/16/19 04/16/19 History Sertraline HCl 50 mg PO DAILY 04/16/19 04/16/19 History HPI: The patient left [facility] 01/2019 to [facility]. His condition has gradually deteriorated to the point at which [facility] can no longer take him back. He requires too much assistance getting in and out of bed. Family History: Findings - Father had dementia. Social History: Findings - Lives at [facility] 4 months. Son Qasim is his SDM. No alcohol or tobacco use. Past Medical History: Findings - /AR, dementia, glaucoma Review of Systems - Measurements Intake and Output: Intake and Output Last 24 Hours 06/24/19 06/25/19 06/26/19 06/27/19 06:59 06:59 06:59 06:59 Weight 170 lb - Review of Systems Constitutional Symptoms: Positive: Weight Gain - uncertain amount Dermatology: Positive: Normal HEENT: Positive: Normal Eyes: Positive: Glaucoma Thyroid: Positive: Normal Pulmonary: Positive: Normal Cardiology: Positive: Normal Gastroenterology: Positive: Normal Genital - Urinary: Positive: Normal Musculoskeletal: Positive: Joint Pain Endocrinology: Positive: Normal Hematologic/Lymphatic: Positive: Anemia Neurology: Positive: Change in Memory Psychiatry: Positive: Normal Allergic/Immunologic: Negative: Hx Anaphylaxis, Hx Angioedema, Hx Environmental, Hx Seasonal, Asthma, Hx HIV, Immunocompromise, Swollen Glands LymphNodes, Other Objective Active Medications: Morphine Sulfate (Morphine Oral.Soln 10 Mg*) 5 mg PO Q30M PRN PRN Reason: PAIN - MILD Non-Formulary Medication (Latanoprost 0.005% Eye Drop) 1 drop BOTH EYES BEDTIME YURIDIA Non-Formulary Medication (Sertraline Hcl) 25 mg PO DAILY YURIDIA Non-Formulary Medication (Timoptic 0.5% Opth*) 1 drop BOTH EYES BID YURIDIA Vital Signs - 8 hr 06/26/19 09:41 Temperature 97.6 F Pulse Rate 82 Respiratory 19 Rate Blood Pressure 136/69 (mmHg) O2 Sat by Pulse 91 Oximetry Oxygen Devices in Use Now: None Appearance: Lethargic, partly up on ED stretcher. Looks comfortable. Eyes: No Scleral Icterus Neck: NL Appearance and Movements; NL JVP, No Thyroid Enlargement, Masses Respiratory: Symmetrical Chest Expansion and Respiratory Effort, Clear to Auscultation, Clear to Percussion Cardiovascular: RRR, No Edema, - - 3-4/6 systolic murmur across precordium Abdominal: NL Sounds; No Tenderness; No Distention, No Hepatosplenomegaly, - Extremities: No Edema, No Clubbing, Cyanosis, - Skin: No Rash or Ulcers, No Nodules or Sclerosis, - Neurological: NL Sensation - He identified his son by first name. Passive. JONES. No tremor. Unable to answer most questions. Assess/Plan/Problems-Billing Assessment: - Patient Problems (1) Aortic stenosis Current Visit: No Status: Acute Code(s): I35.0 - NONRHEUMATIC AORTIC (VALVE ) STENOSIS SNOMED Code(s): 22235986 Comment: - Echo showsed severe , mod AR They have previously declined a TAVR and wish to continue with medical management (2) Dementia Current Visit: No Status: Acute Code(s): F03.90 - UNSPECIFIED DEMENTIA WITHOUT BEHAVIORAL DISTURBANCE SNOMED Code(s): 03127754 Comment: Advanced. Comfort care ordered. Palliative consult requested. Lengthy discussion with son Qasim on 06/26. GDR sertraline. (3) Glaucoma of both eyes Current Visit: No Status: Acute Code(s): H40.9 - UNSPECIFIED GLAUCOMA SNOMED Code(s): 14114510 Comment: - Continue latanoprost, timolol drops (4) Compression fx, lumbar spine Current Visit: No Status: Acute Code(s): S32.000A - WEDGE COMPRESSION FRACTURE OF UNSP LUMBAR VERTEBRA, INIT SNOMED Code(s): 722157047 Comment: - CT lumbar spine showed chronic L1 fracture, acute/subacute L4 burst fracture SL MS PRN.
--- NOTE | 2019-06-26 12:34 | ED ---
Complex/Multi-Sys Presentation - HPI Summary HPI Summary: This patient is a 88-year-old male coming from [facility] presenting to the ED by way of EMS. Per [facility] [place] staff, patient has been stating he wishes he were no longer here and other suicidal thoughts. MOLST form states he should not be transported to the ED, however, since he has been having suicidal thoughts, they were under obligation to sent him here. He has been acting this way for quite some time as his health continues to decline. Son is at bedside and states he has been trying to get him admitted to [facility] and would like more comfort care measures. Requesting hospice consult. - History Of Current Complaint Chief Complaint: EDWeakness Time Seen by Provider: 06/26/19 09:40 Hx Obtained From: Family/[employer], EMS, Medical Records Timing: Constant Severity Currently: Moderate Severity Initially: Moderate Associated Signs And Symptoms: Positive: Confusion, Agitation - Allergies/Home Medications Allergies/Adverse Reactions: Allergies Allergy/AdvReac Type Severity Reaction Status Date / Time No Known Allergies Allergy Verified 12/02/18 18:04 PMH/Surg Hx/FS Hx/Imm Hx Previously Healthy: No - dementia/worsening decline Endocrine/Hematology History: Denies: Hx Anticoagulant Therapy, Hx Diabetes Cardiovascular History: Denies: Hx Atrial Fibrillation, Hx Myocardial Infarction, Hx Pacemaker/ICD Respiratory History: Denies: Hx Asthma, Hx Chronic Obstructive Pulmonary Disease (COPD) History: Denies: Hx Chronic Renal Failure Sensory History: Reports: Hx Contacts or Glasses Denies: Hx Hearing Aid Opthamlomology History: Reports: Hx Contacts or Glasses Neurological History: Reports: Hx Dementia Denies: Hx CVA, Hx Seizures, Hx Spinal Cord Injury Psychiatric History: Denies: Hx Panic Disorder - Surgical History Surgery Procedure, Year, and Place: tonsils. left knee Hx Anesthesia Reactions: No Infectious Disease History: No Infectious Disease History: Denies: Traveled Outside the [place] in Last 30 Days - Family History Known Family History: Positive: Other - Dementia (father) Negative: Hypertension - Social History Occupation: Retired Lives: [facility] Alcohol Use: None Hx Substance Use: No Substance Use Type: Reports: None Hx Tobacco Use: No Smoking Status (MU): Never Smoked Tobacco Review of Systems - ROS Summary Review of Systems Summary: level V caveat d/t cognitive decline Constitutional: Negative Eyes: Negative Cardiovascular: Negative Respiratory: Negative Genitourinary: Negative Positive: no symptoms reported, see HPI Musculoskeletal: Negative Neurological: Negative All Other Systems Reviewed And Are Negative: Yes Physical Exam Triage Information Reviewed: Yes Vital Signs On Initial Exam: Initial Vitals Temp Pulse Resp BP Pulse Ox 97.6 F 82 19 136/69 91 06/26/19 09:41 06/26/19 09:41 06/26/19 09:41 06/26/19 09:41 06/26/19 09:41 Vital Signs Reviewed: Yes Appearance: Positive: Thin Skin: Positive: Skin Color Reflects Adequate Perfusion Head/Face: Positive: Normal Head/Face Inspection Eyes: Positive: EOMI, CAROLYN, Conjunctiva Clear Neck: Positive: Supple, No Lymphadenopathy Respiratory/Lung Sounds: Positive: Clear to Auscultation, Breath Sounds Present Cardiovascular: Positive: Normal Abdomen Description: Positive: Nontender, Soft Psychiatric: Positive: Normal Diagnostics - Vital Signs Vital Signs Temp Pulse Resp BP Pulse Ox 06/26/19 09:41 97.6 F 82 19 136/69 91 - Laboratory Lab Statement: Any lab studies that have been ordered have been reviewed, and results considered in the medical decision making process. Complex Multi-Symp Course/Dx Course Of Treatment: Discussed with patient and son at length regarding hospice care, comfort care, palliative care versus return to memory care center. Patient's son, although reluctant to make this difficult decision, states he would like the patient to have a social admission at this time and will place in comfort care at [facility]. Son has already filled out paperwork at [facility] and is hoping for placement soon. He is also requesting additional pain medication as he believes his father has low back pain, but d/t dementia, is unable to explain. Discussed with Dr. Quigley who will admit to service. - Diagnoses Provider Diagnoses: Failure to thrive, Need for comfort care - Physician Notifications Discussed Care Of Patient With: Aaron Quigley Discharge ED - Sign-Out/Discharge Documenting (check all that apply): Patient Departure Patient Received Moderate/Deep Sedation with Procedure: No - Discharge Plan Condition: Fair Disposition: ADMITTED TO [facility] Referrals: Krista Maldonado MD [Primary Care Provider] - - Billing Disposition and Condition Condition: FAIR Disposition: Admitted to [facility]
[2019-06-26] MEDS: Morphine ORAL.SOLN 10 mg* 2 MG/ML UDC 5 ml PO PRN ×3 (12:51→22:00)
[2019-06-26 16:33] VITALS: BP 141/51
[2019-06-26] MEDS: Timolol 0.5% OPTH.SOL* BTL BOTH EYES SCH (20:31)
[2019-06-26] MEDS: Latanoprost 0.005%* 2.5 ml BTL BOTH EYES SCH (20:32)
[2019-06-26] MEDS: LORazepam TAB(*) 1 MG SL PRN (22:01)
[2019-06-27] MEDS: Morphine ORAL.SOLN 10 mg* 2 MG/ML UDC 5 ml PO PRN ×2 (05:58→07:38)
[2019-06-27] MEDS: LORazepam TAB(*) 1 MG SL PRN ×2 (07:27→20:36)
[2019-06-27] MEDS: Timolol 0.5% OPTH.SOL* BTL BOTH EYES SCH ×2 (07:32→22:53)
[2019-06-27] MEDS ORDERED: Sertraline* 25 MG TAB PO SCH (09:00)
--- NOTE | 2019-06-27 09:09 | PN ---
Subjective Date of Service: 06/27/19 Interval History: Patient sleeping after receiving 5 mg morphine SL and 0.5 mg lorazepam SL about 7:30 AM today. Family History: Findings - Father had dementia. Social History: Findings - Lives at [facility] 4 months. Son Qasim is his SDM. No alcohol or tobacco use. Past Medical History: Findings - /AR, dementia, glaucoma Objective Active Medications: Atropine Sulfate (Atropine 1% (Oral/Sl)*) 2 drop SL Q2H PRN PRN Reason: DYSPNEA Latanoprost (Xalatan 0.005%*) 1 drop BOTH EYES BEDTIME [facility] Last Admin: 06/26/19 20:32 Dose: 1 drop Lorazepam (Ativan Tab(*)) 1 mg SL Q3H PRN PRN Reason: ANXIETY Last Admin: 06/27/19 07:27 Dose: 1 mg Morphine Sulfate (Morphine Oral Concentrate*) 5 mg SL Q30M PRN PRN Reason: PAIN - MILD Sertraline HCl (Zoloft*) 25 mg PO DAILY [facility] Stop: 07/04/19 14:00 Last Admin: 06/27/19 07:27 Dose: 25 mg Timolol Maleate (Timoptic 0.5% Opth*) 1 drop BOTH EYES BID YURIDIA Last Admin: 06/27/19 07:32 Dose: 1 drop Vital Signs - 8 hr 06/27/19 06/27/19 06/27/19 05:58 07:27 07:38 Respiratory 18 18 18 Rate 06/27/19 07:52 Respiratory 18 Rate Oxygen Devices in Use Now: None Appearance: Sleeping in bed, head partly up. Looks comfortable. Assess/Plan/Problems-Billing Assessment: - Patient Problems (1) Aortic stenosis Current Visit: No Status: Acute Code(s): I35.0 - NONRHEUMATIC AORTIC (VALVE ) STENOSIS SNOMED Code(s): 95032286 Comment: - Echo showsed severe , mod AR They have previously declined a TAVR and wish to continue with medical management (2) Dementia Current Visit: No Status: Acute Code(s): F03.90 - UNSPECIFIED DEMENTIA WITHOUT BEHAVIORAL DISTURBANCE SNOMED Code(s): 62113851 Comment: Advanced. Comfort care ordered. Palliative consult requested. Lengthy discussion with satinder Tripp on 06/26. GDR sertraline. (3) Glaucoma of both eyes Current Visit: No Status: Acute Code(s): H40.9 - UNSPECIFIED GLAUCOMA SNOMED Code(s): 93699843 Comment: - Continue latanoprost, timolol drops (4) Compression fx, lumbar spine Current Visit: No Status: Acute Code(s): S32.000A - WEDGE COMPRESSION FRACTURE OF UNSP LUMBAR VERTEBRA, INIT SNOMED Code(s): 124628231 Comment: - CT lumbar spine showed chronic L1 fracture, acute/subacute L4 burst fracture SL MS PRN. (5) End of life care Current Visit: Yes Status: Acute Code(s): Z51.5 - ENCOUNTER FOR PALLIATIVE CARE SNOMED Code(s): 257289432 Comment: Patient was on sertraline 100 mg daily at home, will change to 50 mg , plan GDR.
[2019-06-27] MEDS: Morphine ORAL CONCENTRATE* 5 MG/0.25 ML ORAL.SYRIN SL PRN ×3 (16:24→21:34)
[2019-06-27] MEDS: Latanoprost 0.005%* 2.5 ml BTL BOTH EYES SCH (22:53)
[2019-06-28] MEDS: Morphine ORAL CONCENTRATE* 5 MG/0.25 ML ORAL.SYRIN SL PRN ×6 (02:36→20:05)
[2019-06-28] MEDS: Timolol 0.5% OPTH.SOL* BTL BOTH EYES SCH ×2 (07:48→21:01)
[2019-06-28] MEDS: Sertraline* 50 MG TAB PO SCH (07:48)
[2019-06-28] MEDS: LORazepam TAB(*) 1 MG SL PRN ×2 (09:12→16:46)
[2019-06-28] MEDS: LORazepam TAB(*) 0.5 MG SL SCH ×2 (12:30→20:59)
[2019-06-28] MEDS: Latanoprost 0.005%* 2.5 ml BTL BOTH EYES SCH (21:01)
[2019-06-29] MEDS: LORazepam TAB(*) 0.5 MG SL SCH ×2 (06:10→13:21)
[2019-06-29] MEDS: Timolol 0.5% OPTH.SOL* BTL BOTH EYES SCH (07:29)
[2019-06-29] MEDS: Morphine ORAL CONCENTRATE* 5 MG/0.25 ML ORAL.SYRIN SL PRN (07:31)
[2019-06-29] MEDS: Sertraline* 50 MG TAB PO SCH (07:35)
--- NOTE | 2019-06-29 13:00 | DS ---
CC: Dr. Krista Maldonado* DISCHARGE SUMMARY: DATE OF ADMISSION: 06/26/19 DATE OF DISCHARGE: 06/29/19 PRIMARY CARE PROVIDER: Dr. Krista Maldonado. ATTENDING PHYSICIAN: Dr. Kiara Florez* (dictated by Rossana Frost NP). PRIMARY DIAGNOSES: 1. Severe aortic stenosis. 2. Advanced dementia. 3. Lumbar spine compression fracture. SECONDARY DIAGNOSIS: 1. Glaucoma. STUDIES WHILE IN THE HOSPITAL: None. PROCEDURES WHILE IN THE HOSPITAL: None. HISTORY OF PRESENT ILLNESS AND HOSPITAL COURSE: Mr. Gordon is an 88-year-old male with past medical history of severe aortic stenosis and moderate aortic regurgitation, advanced dementia, and compression fractures, who presented to the emergency room on 06/26/19 after he was noted to be deteriorating at [facility]. Please see the history and physical by Dr. Quigley for complete summary of the events leading up to this hospitalization. In short, the patient was hospitalized at this facility from 12/04/18 to 12/08/18 for a compression fracture. Since that time, he has been living in [facility] and has been doing moderately well, though was noted to have a gradual deterioration and [facility] reported that they would no longer be able to care for him as he was requiring higher level of care than they could provide. Because of the advanced dementia and severe aortic stenosis for which the family has declined treatment, the decision was made to make the patient comfort care and he was admitted by the hospitalist service. The patient has had episodes of severe pain, which has been managed well with morphine. I will also note that he generally yells out when touched at all, so it is difficult to actually determine his level of pain when examining the patient. The family has accepted a bed offer at [facility] with plans to sign on with hospice after arrival. On exam, the patient does not wake to voice, though does yell out in pain when I touch his leg. He is not able to provide any subjective information. Heart has a regular rate and rhythm with a grade 4/ 6 systolic murmur. Lung sounds have scattered rhonchi. There is an occasional wet cough. Abdomen is soft, nontender to palpation. There is no peripheral edema. Physical exam is otherwise benign. Mr. Gordon is stable for discharge today. Vital signs are as follows: Temp 98.4, heart rate 98, respiratory rate 16, oxygen saturation 94% on room, blood pressure 141/51. DISCHARGE MEDICATIONS: New medications: 1. Atropine 1% two drops sublingual q.2 hours p.r.n. secretions. 2. Lorazepam 1 mg sublingual q.3 hours p.r.n. anxiety or restlessness. 3. Morphine oral concentrate 5 mg sublingual q.30 minutes p.r.n. pain. Continued medications: 1. Latanoprost 0.005% 1 drop both eyes at bedtime. 2. Timoptic 0.5% 1 drop both eyes b.i.d. Discontinued medications: 1. Sertraline 2. Acetaminophen. DISCHARGE PLAN: Mr. Gordon will be discharged on comfort measures to [facility]. Activity will be bed rest. Diet will be for comfort as tolerated, though the patient is not waking at this point. Medications noted above. The patient can use atropine, lorazepam and morphine as needed to manage symptoms. I will continue his eye drops at this point, though his other medications have been stopped. The patient will need to follow up with a provider at [facility] and a referral has been made to hospice. I will recommend that the patient be signed on with hospice within in the next 1 to 2 days. The family is very adamant that they would like hospice involvement as soon as possible. The patient should return to the emergency room for any symptoms not able to be managed on an outpatient basis. DISCHARGE CONDITION: Fair. DISCHARGE DISPOSITION: [facility], [facility]. This is a summarized report of a complex medical history and hospital stay. For further details, please see the entire medical record. TIME SPENT: Approximately 45 minutes was spent on this discharge. ROSSANA FROST NP [id number]/CPS #: [id number] COURTNEY
[2019-06-29] MEDS ORDERED: Morphine ORAL CONCENTRATE* 5 MG/0.25 ML ORAL.SYRIN SL SCH (14:00)
--- NOTE | 2019-06-29 14:47 | CONSULT ---
Palliative / Hospice Consult Ordering Provider: Aaron Quigley - PCP-Joel Referal Reason: Goals of care/pain controlled with lorazepam and morphine - Subjective Code Status: DNR Advance Directives Location: In Chart MOLST Part A Completed: Yes - on chart MOLST Part E Completed:: Yes - on chart - History or Present Illness History or Present Illness: 88yo male resident of [place] with dementia and severe was brought to [facility] due to pain and failure to thrive. Pt had been at [facility] and was transferred by family request to [facility] weeks ago, where he can not go back because he needs more care than assisted living facility can give. PMH is significant for moderate dementia, severe declining TAVR, mod AR and ostopenia. PSHx no etoh, no drugs, no tob, retired mainframe systems programmer son Marcial is his HCP form is in the chart. Studies no labs. Pt was placed in care home care. All history is from the son and medical records, pt is unable to contribute. Son notes that his dad has been falling more, sleeping more and seems to be declining more. - Objective Vital Signs: Vital Signs: Temp Pulse Resp BP Pulse Ox 98.4 F 98 18 141/51 94 06/29/19 07:45 06/29/19 07:45 06/29/19 13:28 06/26/19 14:34 06/29/19 07:45 Patient Weight: Weight 61.371 kg Intake and Output: Intake & Output 06/27/19 06/28/19 06/29/19 06/30/19 06:59 06:59 06:59 06:59 Intake Total 0 0 240 Balance 0 0 240 Weight 61.371 kg Intake: Oral 0 0 240 Other: Estimated Void Medium Large Large # Bowel Movements 0 # Voids 2 1 1 ADLs: Meal Record Start: 06/26/19 14: 34 Freq: DAILY@0900,1400,1800 Status: Discharge Protocol: Created 06/26/19 14:34 System (Rec: 06/26/19 14:34 System MED-C09) Document 06/26/19 18:00 [id number] (Rec: 06/26/19 18:56 [id number] MED-C13) Document 06/27/19 09:00 [id number] (Rec: 06/27/19 14:14 [id number] MED-C11) Document 06/27/19 14:00 [id number] (Rec: 06/27/19 14:14 [id number] MED-C11) Document 06/27/19 18:00 [id number] (Rec: 06/27/19 18:37 [id number] MED-C05) Document 06/28/19 09:00 [id number] (Rec: 06/28/19 09:02 [id number] MED-C05) Document 06/28/19 13:27 [id number] (Rec: 06/28/19 13:28 [id number] MED-C09) Document 06/28/19 18:00 [id number] (Rec: 06/28/19 18:40 [id number] MED-C09) Document 06/29/19 09:00 [id number] (Rec: 06/29/19 10:42 [id number] MED-C11) Intake and Output Start: 06/26/19 09: 45 Freq: Status: Discharge Protocol: Created 06/26/19 09:45 System (Rec: 06/26/19 09:45 System [id number]) Intake and Output Start: 06/26/19 14: 34 Freq: DAILY@0600,1400,2200 Status: Discharge Protocol: Created 06/26/19 14:34 System (Rec: 06/26/19 14:34 System MED-C09) Document 06/26/19 22:00 [id number] (Rec: 06/26/19 22:23 [id number] MED-C15) Document 06/27/19 06:00 [id number] (Rec: 06/27/19 06:04 [id number] MED-C15) Document 06/27/19 14:00 [id number] (Rec: 06/27/19 14:23 [id number] MED-C11) Document 06/27/19 22:00 [id number] (Rec: 06/27/19 22:01 [id number] MED-C11) Document 06/28/19 05:28 [id number] (Rec: 06/28/19 05:28 [id number] MED-C11) Document 06/28/19 13:27 [id number] (Rec: 06/28/19 13:28 [id number] MED-C09) Document 06/28/19 22:00 [id number] (Rec: 06/29/19 00:56 [id number] MED-C09) Document 06/29/19 05:38 [id number] (Rec: 06/29/19 05:38 [id number] MED-C09) Eyes: No Scleral Icterus Neck: NL Appearance and Movements; NL JVP, No Thyroid Enlargement, Masses Cardiovascular: RRR, No Edema, - - 3-4/6 systolic murmur across precordium Abdominal: NL Sounds; No Tenderness; No Distention, No Hepatosplenomegaly, - Extremities: No Edema, No Clubbing, Cyanosis, - Neurological: NL Sensation - He identified his son by first name. Passive. JONES. No tremor. Unable to answer most questions. - Assessment Assessment: 88 yo male with mod dementia and severe refusing TAVR presents with pain and failure to thrive - Plan Consult Plan (MU): Hospice Plan: Long discussion with son who would prefer if pt was at [facility] or hospice residence but neither facility had a bed. Pt was able to get a bed with [facility] and possible hospice sign on. Son is aware that he has to request a hospice referral from the doctor at [facility]. He is worried pt's pain won't be treated adequately. Currently he is taking lorazepam and morphine which seem to be helping. He says his dad has been clear in the past not wanting intubation/ CPR/feeding tube and not to extend his life because he has a poor quality of life. Son feels his father is declining and wants to be on comfort care. If pt is hospice eligible it would be with the diagnosis of severe not wanting repair, moderate dementia and 10 kilo weight loss in 2 months. KPS 50%, PPS 40% - Time On Unit Date of Evaluation: 06/29/19 Hospice Consult Time in: 12:00 Hospice Consult Time Out: 13:30 Hospice Consult Time Total: 90 > 50% of Time Spend In Counseling or Coordinating Care: Yes
== END 2019-06-29 13:50 | DRG 307 ==
LOC: ED 09:37 → MED 12:18 → OBSVTOIN 13:50
PROVIDERS: ADMIT Internal Medicine; ATTEND Internal Medicine
DX: I35.0 Nonrheumatic aortic (valve) stenosis (principal); M48.56XA Collapsed vertebra, not elsewhere classified, lumbar region, initial encounter for fracture; F03.90 Unspecified dementia, unspecified severity, without behavioral disturbance, psychotic disturbance, mood disturbance, and anxiety; H40.9 Unspecified glaucoma; Z51.5 Encounter for palliative care; Z75.1 Person awaiting admission to adequate facility elsewhere; Z79.1 Long term (current) use of non-steroidal anti-inflammatories (NSAID); Z79.899 Other long term (current) drug therapy
CPT/HCPCS: 99283; A9270-GY; J2270